=== PATIENT | male | born 1955 | race Caucasian/White ===

== ENCOUNTER 2020-04-28 13:26 | Outpatient (REF) | payer OTHER, SELFPAY ==
[2020-04-28 17:12] LABS: Alanine Aminotransferase 32 U/L (0-40); Anion Gap 15 (12-20); Aspartate Amino Transferase 34 U/L (5-37); Blood Urea Nitrogen 26 mg/dL (9-16); Calcium 8.6 mg/dL (8.4-10.2); Carbon Dioxide 29 mmol/L (22-29); Chloride 105 mmol/L (96-108); Cholesterol 147 mg/dL; Estimated Glomerular Filt Rate 37; Glucose Fasting 70 mg/dL (60-99); HDL Cholesterol 38 mg/dL; LDL Cholesterol Calculated 86 mg/dl; Potassium 4.2 mmol/l (3.3-5.1); Sodium 145 mmol/L (135-145); Triglycerides 119 mg/dL
== END 2020-04-28 13:27 | disposition home or self-care (01) ==
LOC: HO.HMGCLDS 13:26
PROVIDERS: PCP Internal Medicine; Visit Provider Internal Medicine
DX: E78.2 Mixed hyperlipidemia (principal); I10 Essential (primary) hypertension
CPT/HCPCS: 80048; 80061; 84450; 84460

== ENCOUNTER 2020-10-28 11:58 | Outpatient (REF) | payer OTHER, SELFPAY ==
[2020-10-28 14:45] LABS: Alanine Aminotransferase 25 U/L (0-40); Anion Gap 13 (12-20); Aspartate Amino Transferase 28 U/L (5-37); Blood Urea Nitrogen 22 mg/dL (9-16); Calcium 9.5 mg/dL (8.4-10.2); Carbon Dioxide 29 mmol/L (22-29); Chloride 108 mmol/L (96-108); Cholesterol 151 mg/dL; Estimated Glomerular Filt Rate 55; Glucose Fasting 92 mg/dL (60-99); HDL Cholesterol 36 mg/dL; LDL Cholesterol Calculated 92 mg/dl; Potassium 3.9 mmol/L (3.3-5.1); Sodium 146 mmol/L (135-145); Triglycerides 119 mg/dL
== END 2020-10-28 11:59 | disposition home or self-care (01) ==
LOC: HO.HMGCLDS 11:58
PROVIDERS: PCP Internal Medicine; Visit Provider Internal Medicine
DX: E78.5 Hyperlipidemia, unspecified (principal); I10 Essential (primary) hypertension
CPT/HCPCS: 36415; 80048; 80061; 84450; 84460

== ENCOUNTER 2021-05-05 10:10 | Outpatient (REF) | payer OTHER, SELFPAY ==
[2021-05-05 12:00] LABS: Alanine Aminotransferase 45 U/L (0-40); Anion Gap 14 (12-20); Aspartate Amino Transferase 32 U/L (5-37); Blood Urea Nitrogen 31 mg/dL (9-16); Calcium 9.3 mg/dL (8.4-10.2); Carbon Dioxide 28 mmol/L (22-29); Chloride 104 mmol/L (96-108); Cholesterol 168 mg/dL; Estimated Glomerular Filt Rate 43; Glucose Fasting 97 mg/dL (60-99); HDL Cholesterol 39 mg/dL; LDL Cholesterol Calculated 100 mg/dl; Potassium 3.8 mmol/L (3.3-5.1); Sodium 142 mmol/L (135-145); Triglycerides 147 mg/dL
[2021-05-05 12:04] LABS: Vitamin D 25-OH Total 34.9 ng/mL (>30)
== END 2021-05-05 10:11 | disposition home or self-care (01) ==
LOC: HO.HMGCLDS 10:10
PROVIDERS: PCP Internal Medicine; Visit Provider Internal Medicine
DX: E55.9 Vitamin D deficiency, unspecified (principal); E66.9 Obesity, unspecified; E78.5 Hyperlipidemia, unspecified; I10 Essential (primary) hypertension
CPT/HCPCS: 36415; 80048; 80061; 82306; 84450; 84460

== ENCOUNTER 2021-11-04 12:16 | Outpatient (REF) | payer OTHER, SELFPAY ==
[2021-11-04 13:47] LABS: Uric Acid 6.8 mg/dL (3.4-7.0)
[2021-11-04 13:48] LABS: Alanine Aminotransferase 32 U/L (0-40); Albumin Level 3.9 g/dL (3.5-5.0); Alkaline Phosphatase 40 U/L (39-117); Anion Gap 11 (12-20); Aspartate Amino Transferase 28 U/L (5-37); Bilirubin Total 0.8 mg/dL (0.0-1.0); Blood Urea Nitrogen 27 mg/dL (9-16); Calcium 9.7 mg/dL (8.4-10.2); Carbon Dioxide 29 mmol/L (22-29); Chloride 108 mmol/L (96-108); Cholesterol 151 mg/dL; Estimated Glomerular Filt Rate 40; Glucose Fasting 97 mg/dL (60-99); HDL Cholesterol 36 mg/dL; LDL Cholesterol Calculated 88 mg/dl; Potassium 4.1 mmol/L (3.3-5.1); Sodium 144 mmol/L (135-145); Total Protein 6.8 g/dL (6.5-8.0); Triglycerides 136 mg/dL
[2021-11-04 14:04] LABS: Vitamin D 25-OH Total 22.6 ng/mL (>30)
== END 2021-11-04 12:17 | disposition home or self-care (01) ==
LOC: HO.HMGCLDS 12:16
PROVIDERS: Visit Provider Internal Medicine
DX: E66.9 Obesity, unspecified (principal); E78.5 Hyperlipidemia, unspecified; I10 Essential (primary) hypertension; M10.9 Gout, unspecified; Z86.39 Personal history of other endocrine, nutritional and metabolic disease
CPT/HCPCS: 36415; 80053; 80061; 82306; 84550

== ENCOUNTER 2022-03-27 12:58 | Outpatient (REF) | payer OTHER, MEDICARE, SELFPAY ==
[2022-03-27 15:16] LABS: Creatinine Urine 192.37 mg/dL; Protein/Creatinine Ratio, Ur 0.07 (<0.2); Total Protein Urine Random 14 mg/dL (<12)
== END 2022-03-27 12:59 | disposition home or self-care (01) ==
LOC: HO.HMGCLDS 12:58
PROVIDERS: PCP Internal Medicine; Visit Provider Internal Medicine Nephrology
DX: I10 Essential (primary) hypertension (principal); E78.5 Hyperlipidemia, unspecified
CPT/HCPCS: 84156

== ENCOUNTER 2022-07-16 09:53 | Outpatient (REF) | payer OTHER, MEDICARE, SELFPAY ==
[2022-07-16 13:28] LABS: Alanine Aminotransferase 44 U/L (0-40); Anion Gap 13 (12-20); Aspartate Amino Transferase 35 U/L (5-37); Blood Urea Nitrogen 20 mg/dL (9-16); Calcium 9.4 mg/dL (8.4-10.2); Carbon Dioxide 28 mmol/L (22-29); Chloride 107 mmol/L (96-108); Cholesterol 163 mg/dL; Estimated Glomerular Filt Rate 51; Glucose Fasting 97 mg/dL (60-99); HDL Cholesterol 37 mg/dL; LDL Cholesterol Calculated 96 mg/dl; Potassium 3.9 mmol/L (3.3-5.1); Sodium 144 mmol/L (135-145); Triglycerides 151 mg/dL; Uric Acid 6.1 mg/dL (3.4-7.0)
[2022-07-16 13:29] LABS: Vitamin D 25-OH Total 20.8 ng/mL (>30)
== END 2022-07-16 09:54 | disposition home or self-care (01) ==
LOC: HO.HMGCLDS 09:53
PROVIDERS: PCP Internal Medicine; Visit Provider Internal Medicine
DX: E55.9 Vitamin D deficiency, unspecified (principal); I10 Essential (primary) hypertension; E78.5 Hyperlipidemia, unspecified; R79.89 Other specified abnormal findings of blood chemistry
CPT/HCPCS: 36415; 80048; 80061; 82306; 84450; 84460; 84550

== ENCOUNTER 2023-02-01 10:43 | Outpatient (REF) | payer OTHER, SELFPAY ==
[2023-02-01 14:46] LABS: Alanine Aminotransferase 51 U/L (0-40); Anion Gap 11 (12-20); Aspartate Amino Transferase 35 U/L (5-37); Blood Urea Nitrogen 13 mg/dL (9-16); Calcium 9.9 mg/dL (8.4-10.2); Carbon Dioxide 29 mmol/L (22-29); Chloride 108 mmol/L (96-108); Cholesterol 132 mg/dL; Estimated Glomerular Filt Rate 55; Glucose Fasting 85 mg/dL (60-99); HDL Cholesterol 31 mg/dL; LDL Cholesterol Calculated 77 mg/dl; Potassium 3.9 mmol/L (3.3-5.1); Sodium 144 mmol/L (135-145); Triglycerides 123 mg/dL
[2023-02-01 15:01] LABS: Vitamin D 25-OH Total 28.9 ng/mL (>30)
== END 2023-02-01 10:44 | disposition home or self-care (01) ==
LOC: HO.HMGCLDS 10:43
PROVIDERS: PCP Internal Medicine; Visit Provider Internal Medicine
DX: E55.9 Vitamin D deficiency, unspecified (principal); E78.5 Hyperlipidemia, unspecified; I10 Essential (primary) hypertension; E66.9 Obesity, unspecified
CPT/HCPCS: 36415; 80048; 80061; 82306; 84450; 84460

== ENCOUNTER 2023-02-04 13:23 | Outpatient (AMB) | payer OTHER, SELFPAY ==
[2023-02-04 13:25] VITALS: BP 132/70; PULSE 62; O2SAT 98; BMI 35.4
--- NOTE | 2023-02-04 13:25 | MHC.PC.OV ---
Vital Signs 02/04/23 13:25 Height 5 ft 10 in Weight 247 lb BMI 35.4 BP 132/70 Blood Pressure Location Lt brachial Position Sitting Pulse 62 Pulse Source Pulse Oximeter Pulse Oximetry (%) 98 Intake Visit Reasons: ffup lipids , htn , vit D def Intake Note: pt is here for f/u lipids, htn, vit d Linux System Administrator Required: No Allergies No Known Allergies Allergy (Verified 02/04/23 13:36) Medication List - Last Reconciled 02/04/23 by Stephanie Pedersen MD allopurinol 100 mg PO DAILY amlodipine 2.5 mg PO DAILY ascorbate calcium (vitamin C) 500 mg PO DAILY atorvastatin 20 mg PO DAILY atovaquone-proguanil 250-100 mg (Malarone) take 1 tab once daily x1 day before exposure, during time in area, and x7 days after leaving area PO B-complex with vitamin C 1 cap PO DAILY cholecalciferol (vitamin D3) 50 mcg PO DAILY cholecalciferol (vitamin D3) 1,250 mcg PO QWEEK 90 days fenofibrate micronized 134 mg PO DAILY hydrochlorothiazide 25 mg PO DAILY lisinopril 30 mg PO DAILY omega-3 fatty acids (Fish Oil Concentrate) 1,000 mg PO DAILY turmeric mg PO vitamin A 2,400 mcg PO DAILY Tobacco use date assessed: 08/06/22 Fall risk assessment: No Falls in past year Last assessed Fall Risk: 02/04/23 Dental Screening Dental Screen Date: 02/04/23 Did you have a dental visit in the last 12 months?: Yes Did you have a dental problem in the last 6 months where you did not have access to dental care?: No Was dental information given to patient?: Patient has dentist HPI ffup lipids , htn , vit D def HPI Details 67-year-old male with hypertension currently stable and controlled on amlodipine 2.5 mg daily and lisinopril 30 mg daily with hydrochlorothiazide 25 mg daily. Pressure has been stable and controlled. He also has dyslipidemia with latest fasting labs showing normal lipids except for low HDL cholesterol. Currently taking omega 3 fatty acid supplements atorvastatin 20 mg daily and fenofibrate micronized 135 mg daily. Denies any muscle pain, weakness, no rash. He has been compliant with his diet, and is active, just came back from a recent 2 [place] went [place] a [place] . He has history of vitamin-D deficiency, has been taking vitamin-D 3 supplements once a week high-dose, with latest vitamin-D level improving, but still not at goal of above 30. Has been feeling well with no complaints at present time [facility] Medical History COVID-19 virus infection Dyslipidemia Essential hypertension Gout High serum creatinine Hypertensive nephrosclerosis Obesity Osteoarthritis Septic arthritis Vitamin D deficiency Vitamin D deficiency Surgical History History of colonoscopy History of septic arthritis Family History Father HTN (hypertension) Stroke Mother COPD (chronic obstructive pulmonary disease) Mental health disorder Maternal Uncle Lung cancer Non-insulin dependent diabetes mellitus Substance use disorder Maternal Aunt Substance use disorder Paternal Aunt Substance use disorder Paternal Uncle Substance use disorder Social History Housing: House Alcohol intake: current Patient Tobacco Use Status: Never used Tobacco e-Cigarette/Vaping Use: Never Used service: No Current occupational status: retired Cognitive needs: No Hearing needs: No Vision needs: No Questionnaire PHQ-9 Over the last 2 weeks, how often have you been bothered by any of the following problems? Depression Screening Interpretation: Negative Source: Developed by Drs. Maxime Porter, Carin Hart, Matthew Taylor and colleagues, with an educational jay from [employer]. Thrive Questionnaire Date Thrive assessed: 08/06/22 FLORECITA-7 AMB Questionnaire FLORECITA-7 Date FLORECITA - 7 assessed: 08/06/22 Source: Developed by Drs. Maxime Porter, Carin Hart, Matthew Taylor and colleagues, with an educational jay from [employer]. Review of Systems Const Denies body aches, Denies fatigue, Denies fever(s), Denies headache(s) and Denies weakness Eyes Denies change in vision ENT Denies dizziness, Denies headache(s), Denies nasal congestion and Denies nasal discharge Card Denies chest pain, Denies lightheadedness, Denies palpitations and Denies dyspnea Resp Denies chest congestion, Denies cough, Denies dyspnea and Denies wheezing GI Denies abdominal pain, Denies change in bowel habits and Denies heartburn Denies dysuria, Denies urinary frequency and Denies urinary urgency Musc Reports stiffness (Occasional) Skin/Breast Denies dry skin, Denies lesions and Denies rash Neuro Denies dizziness, Denies headache(s) and Denies weakness Endo Denies fatigue, Denies polydipsia, Denies polyuria and Denies palpitations Aller/Immun Denies seasonal rhinorrhea and Denies wheezing Physical exam (Primary Care) Vital Signs: Last Vital Signs Pulse 62 02/04/23 13:25 BP 132/70 02/04/23 13:25 Pulse Ox 98 02/04/23 13:25 BMI result Body Mass Index 35.4 BMI Assessment/Plan discussion: High BMI High, discussed plan: lifestyle, weight reduction, dietary and physical activity Tobacco/Smoking Status: Tobacco use Status Tobacco use date assessed 08/06/22 02/04/23 13:29 Patient Tobacco Use Status Never used Tobacco 02/04/23 13:29 e-Cigarette/Vaping Use Never Used 02/04/23 13:29 Depression Screening Interpretation: Negative Thrive Assessment: Date of Thrive Assessment Date Thrive assessed 08/06/22 02/04/23 13:29 Const General: comfortable, no acute distress and alert Orientation/consciousness: patient oriented x3 HENMT Ears: external ears normal, TM's normal bilaterally and EAC's normal General nose exam: Normal external nose present and No nasal discharge present Mouth: oropharynx normal and moist mucous membranes Eyes General: appearance normal, both eyes and all related structures Conjunctivae: conjunctivae normal Sclerae: sclerae normal Pupils: Equal, round and reactive pupils present EOM: EOMs intact bilaterally Neck Neck: Yes full ROM, Yes no lymphadenopathy and Yes supple Resp Effort & Inspection: normal respiratory effort and able to speak in complete sentences Auscultation: clear to auscultation bilaterally Cardio Rate: regular rate Rhythm: regular rhythm Heart sounds: S1 normal heart sound present and S2 normal heart sound present GI Palpation (GI): Soft to palpation, nontender and no masses Auscultation: normal bowel sounds Back/Spine/Pelvis Back: No back tenderness Skin General skin exam: no rashes or lesions noted Neuro General: patient oriented x3, gait normal, tone normal, moves all extremities, Normal light touch and pain sensation and no focal motor deficits Cranial nerves: Yes CN's II-XII intact bilaterally and Yes Equal, round and reactive pupils present Cognition (Neuro): normal cognition Extrem General: Yes full ROM, Yes no joint enlargement, Yes no clubbing, cyanosis or edema and Yes no calf tenderness Results Reviewed Results Reviewed: PEC : [id number] AMANDA: 02/01/23 STATUS: COMP REQ : [id number] RECD: 02/01/[address]: Stephanie Pedersen MD COMP: 02/01/23-150 ENTERED: 02/01/23-[address]: ORDERED: Met Prof Fast, AST, ALT, Lipid Panel, Vitamin D 25-OH Test Result Flag Reference Site Sodium 144 135-145 mmol/L Potassium 3.9 3.3-5.1 mmol/L CL 108 96-108 mmol/L CO2 29 22-29 mmol/L Gap 11 L 12-20 BUN 13 9-16 mg/dL Creat 1.29 0.5-1.4 mg/dL EGFR 55 NOTE: For -[place] individuals, multiply the result by 1.210. Chronic Kidney Disease: Estimated GFR < 60 mL/min/1.73m2 Severe Kidney Disease: Estimated GFR < 15 mL/min/1.73m2 FBS 85 60-99 mg/dL CA 9.9 8.4-10.2 mg/dL AST (GOT) 35 5-37 U/L ALT (GPT) 51 H 0-40 U/L Triglyceride 123 mg/dL Desirable Triglyceride: less than 150 mg/dL Borderline High Triglyceride 150-199 mg/dL High Triglyceride: 200-499 mg/dL Very High Triglyceride: greater than or equal to 5OO mg/dL Chol 132 mg/dL Desirable Cholesterol: less than 200 mg/dL Borderline High Cholesterol: 200-239 mg/dL High Cholesterol: greater than 239 mg/dL LDL Calculated 77 mg/dl Desirable LDL: less than 100 mg/dL Near Optimal/Above Optimal LDL: 110-129 mg/dL Borderline High LDL: 130-159 mg/dL High LDL: 160-189 mg/dL Very High LDL: greater than or equal to 190 mg/dL HDL 31 mg/dL Desirable HDL: greater than 40 mg/dL Note: This HDL assay may give artificially low results in patients with liver disease. Vit D 25-OH Tot 28.9 >30 ng/mL Health Based Reference Values* < 20 ng/mL Deficient 20-30 ng/mL Insufficient > 30 ng/mL Sufficient Assessment and Plan Assessment & Plan (1) Vitamin D deficiency: Code(s): E55.9 - Vitamin D deficiency, unspecified Plan: Increase vitamin-D level supplement to 5000 units daily for the next 3 months then decrease it to 2000 units daily over the winter. Recheck levels again in 6 months (2) Essential hypertension: Code(s): I10 - Essential (primary) hypertension Plan: Blood pressure at goal of less than 130/80. Continue with lisinopril 30 mg and hydrochlorothiazide 25 mg daily. Reinforced importance of following a low sodium diet, getting regular exercise, and lowering stress levels. (3) Dyslipidemia: Code(s): E78.5 - Hyperlipidemia, unspecified Plan: Reviewed recent fasting lipid profile with patient with levels within normal limits except for low good cholesterol . Continue with atorvastatin 20 , fenofibrate, mg and [place] 3 fatty acid supplements , in addition to adherence to low-cholesterol diet and regular exercise, at least 30 minutes 3 to 4 times a week. Advised patient to make healthy food choices, eat more fruits, vegetables, whole grains, wild caught fish and low-fat dairy. Limit amount of meat and fried or fatty food products, as well as processed foods and fast foods. Follow-up scheduled with repeat fasting lipid panel in 6 months. (4) Obesity: Code(s): E66.9 - Obesity, unspecified Plan: Discussed need to increase activity and wt reduction. Recommended focusing on improving your health instead of dieting. : Eat Mediterranean diet, limit foods high in fat, sugar, and calories, eat slowly, pay attention to portion sizes, plan your meals ahead of time, start regular physical activity 150 minutes of moderate intensity exercise or 90 minutes/week of vigorous exercise and increase water intake. Orders: Orders Alanine Aminotransferase 6 Months E55.9 - Vitamin D deficiency, unspecified, E66.9 - Obesity, unspecified, E78.5 - Hyperlipidemia, unspecified, I10 - Essential (primary) hypertension Aspartate Amino Transferase 6 Months E55.9 - Vitamin D deficiency, unspecified, E66.9 - Obesity, unspecified, E78.5 - Hyperlipidemia, unspecified, I10 - Essential (primary) hypertension Basic Metabolic Panel Fasting 6 Months E55.9 - Vitamin D deficiency, unspecified, E66.9 - Obesity, unspecified, E78.5 - Hyperlipidemia, unspecified, I10 - Essential (primary) hypertension Lipid Panel 6 Months E55.9 - Vitamin D deficiency, unspecified, E66.9 - Obesity, unspecified, E78.5 - Hyperlipidemia, unspecified, I10 - Essential (primary) hypertension Vitamin D 25-OH Total 6 Months E55.9 - Vitamin D deficiency, unspecified, E66.9 - Obesity, unspecified, E78.5 - Hyperlipidemia, unspecified, I10 - Essential (primary) hypertension Coding Level of Care Code Est Pt Level 4 (89887) Diagnoses Vitamin D deficiency E55.9 Essential hypertension I10 Dyslipidemia E78.5 Obesity E66.9
== END 2023-02-04 13:56 | disposition home or self-care (01) ==
PROVIDERS: Visit Provider Internal Medicine
DX: I10 Essential (primary) hypertension (principal); E55.9 Vitamin D deficiency, unspecified; E66.9 Obesity, unspecified; Z68.35 Body mass index [BMI] 35.0-35.9, adult; E78.5 Hyperlipidemia, unspecified
CPT/HCPCS: 99214

== ENCOUNTER 2023-07-26 09:27 | Outpatient (REF) | payer OTHER, SELFPAY ==
[2023-07-26 12:42] LABS: Alanine Aminotransferase 40 U/L (0-40); Anion Gap 14 (12-20); Aspartate Amino Transferase 35 U/L (5-37); Blood Urea Nitrogen 24 mg/dL (9-16); Calcium 9.8 mg/dL (8.4-10.2); Carbon Dioxide 30 mmol/L (22-29); Chloride 102 mmol/L (96-108); Cholesterol 151 mg/dL (<200); Estimated Glomerular Filt Rate > 60; Glucose Fasting 84 mg/dL (60-99); HDL Cholesterol 38 mg/dL (>40); LDL Cholesterol Calculated 87 mg/dL (<100); Potassium 3.2 mmol/L (3.3-5.1); Sodium 143 mmol/L (135-145); Triglycerides 131 mg/dL (<150)
[2023-07-26 13:00] LABS: Vitamin D 25-OH Total 46.5 ng/mL (>30)
== END 2023-07-26 09:28 | disposition home or self-care (01) ==
LOC: HO.HMGCLDS 09:27
PROVIDERS: PCP Internal Medicine; Visit Provider Internal Medicine
DX: E55.9 Vitamin D deficiency, unspecified (principal); E66.9 Obesity, unspecified; I10 Essential (primary) hypertension; E78.5 Hyperlipidemia, unspecified
CPT/HCPCS: 36415; 80048; 80061; 82306; 84450; 84460

== ENCOUNTER 2023-07-29 11:25 | Outpatient (AMB) | payer OTHER, SELFPAY ==
[2023-07-29 11:37] VITALS: BP 132/80; PULSE 60; O2SAT 96; BMI 36.6
--- NOTE | 2023-07-29 11:37 | MHC.PC.OV ---
Vital Signs 07/29/23 11:37 Height 5 ft 10 in Weight 255 lb BMI 36.6 BP 132/80 Blood Pressure Location Lt brachial Position Sitting Pulse 60 Pulse Source Pulse Oximeter Pulse Oximetry (%) 96 Oxygen Delivery Method Room Air Intake Visit Reasons: 6m f/u Intake Note: Pt is here today for his 6 months f/u Allergies No Known Allergies Allergy (Verified 07/29/23 12:11) Medication List - Last Reconciled 07/29/23 by Stephanie Pedersen MD allopurinol 100 mg PO DAILY amlodipine 2.5 mg PO DAILY ascorbate calcium (vitamin C) 500 mg PO DAILY atorvastatin 20 mg PO DAILY B-complex with vitamin C 1 cap PO DAILY cholecalciferol (vitamin D3) 50 mcg PO DAILY fenofibrate micronized 134 mg PO DAILY hydrochlorothiazide 25 mg PO DAILY lisinopril 30 mg PO DAILY omega-3 fatty acids (Fish Oil Concentrate) 1,000 mg PO DAILY turmeric mg PO vitamin A 2,400 mcg PO DAILY Tobacco use date assessed: 07/29/23 Fall risk assessment: No Falls in past year Last assessed Fall Risk: 07/29/23 Dental Screening Dental Screen Date: 07/29/23 Did you have a dental visit in the last 12 months?: Yes Did you have a dental problem in the last 6 months where you did not have access to dental care?: Yes Was dental information given to patient?: Patient has dentist HPI 6m f/u HPI Details 68-year-old male with hyperlipidemia, hypertension, osteoarthritis and history of gout, here today for follow-up. He has been compliant with taking his medications, and tries to follow diet recommended, stays active. Had recent fasting labs done which showed normal lipids, electrolytes except for hypokalemia. Otherwise he has been feeling well with no complaints at present time. [facility] Medical History (Updated 07/29/23 @ 12:31 by Stephanie Pedersen MD) Right knee pain Hypertensive nephrosclerosis Vitamin D deficiency High serum creatinine Osteoarthritis COVID-19 virus infection Obesity Vitamin D deficiency Septic arthritis Gout Essential hypertension Dyslipidemia Surgical History History of colonoscopy History of septic arthritis Family History Father HTN (hypertension) Stroke Mother COPD (chronic obstructive pulmonary disease) Mental health disorder Maternal Uncle Lung cancer Non-insulin dependent diabetes mellitus Substance use disorder Maternal Aunt Substance use disorder Paternal Aunt Substance use disorder Paternal Uncle Substance use disorder Social History Housing: House Alcohol intake: current Patient Tobacco Use Status: Never used Tobacco e-Cigarette/Vaping Use: Never Used service: No Current occupational status: retired Cognitive needs: No Hearing needs: No Vision needs: No Questionnaire PHQ-9 Over the last 2 weeks, how often have you been bothered by any of the following problems? 1. Little interest or pleasure in doing things: not at all 2. Feeling down, depressed, or hopeless: not at all 3. Trouble falling or staying asleep, or sleeping too much: not at all 4. Feeling tired or having little energy: not at all 5. Poor appetite or overeating: not at all 6. Feeling bad about yourself - or that you are a failure or have let yourself or your family down: not at all 7. Trouble concentrating on things, such as reading the newspaper or watching television: not at all 8. Moving or speaking so slowly that other people could have noticed. Or the opposite - being so fidgety or restless that you have been moving around a lot more than usual: not at all 9. Thoughts that you would be better off or of hurting yourself in some way: not at all Total score: 0 Depression Screening Interpretation: Negative Depression Screening Done: Yes 48498 - PHQ-9 Billing: Yes Source: Developed by Drs. Maxime Porter, Carin Hart, Matthew Taylor and colleagues, with an educational jay from [employer]. Thrive Questionnaire Date Thrive assessed: 07/29/23 I am a: Patient What is your living situation today?: I have a steady place to live Within the past 12 months, did the food you bought not last and you didn't have the money to get more?: Never true Within the past 12 months, did you worry whether your food would run out before you got money to buy more?: Never true Do you have trouble paying for medicines?: No Do you have trouble getting transportation to medical appointments?: No Do you have trouble paying your heating and electricity bill?: No Do you have trouble taking care of your child, family member or friend?: No Do you have trouble with day-to-day activities such as bathing, preparing meals, shopping, managing finances, etc.?: No Are you currently unemployed and looking for a job?: No Are you interested in more education?: No THRIVE Score: 0 AUDIT C Alcohol Use Questionnaire (AUDIT-C) 1. How often do you have a drink containing alcohol?: Monthly or less 2. How many drinks containing alcohol do you have on a typical day when you are drinking?: 1 or 2 3. How often do you have six or more drinks on one occasion?: Never Total Score: 1 FLORECITA-7 AMB Questionnaire FLORECITA-7 Date FLORECITA - 7 assessed: 07/29/23 Feeling nervous, anxious, or on edge: 0 = Not at all Not being able to stop or control worryin = Not at all Worrying too much about different things: 0 = Not at all Trouble relaxin = Not at all Being so restless that it is hard to sit still: 0 = Not at all Becoming easily annoyed or irritable: 0 = Not at all Feeling afraid as if something awful might happen: 0 = Not at all Total FLORECITA-7 score (0-4 normal; 5-9 mild; 10-14 moderate; 15-21 severe): 0 Source: Developed by Drs. Maxime Porter, Carin Hart, Matthew Taylor and colleagues, with an educational jay from [employer]. FLORECITA-7 Assessment Billing FLORECITA-7 Assessment Tool: FLORECITA-7 Assessment 52468 Review of Systems Const Denies body aches, Denies fatigue, Denies fever(s), Denies headache(s) and Denies weakness Eyes Denies change in vision ENT Denies dizziness, Denies headache(s), Denies nasal congestion and Denies nasal discharge Card Denies chest pain, Denies lightheadedness, Denies palpitations and Denies dyspnea Resp Denies chest congestion, Denies cough, Denies dyspnea and Denies wheezing GI Denies abdominal pain, Denies change in bowel habits and Denies heartburn Denies dysuria, Denies urinary frequency and Denies urinary urgency Musc Reports stiffness (Occasional) Skin/Breast Denies dry skin, Denies lesions and Denies rash Neuro Denies dizziness, Denies headache(s) and Denies weakness Psych Reports no additional complaints Endo Denies fatigue, Denies polydipsia, Denies polyuria and Denies palpitations Aller/Immun Denies seasonal rhinorrhea and Denies wheezing Physical exam (Primary Care) Vital Signs: Last Vital Signs Pulse 60 07/29/23 11:37 BP 132/80 07/29/23 11:37 Pulse Ox 96 07/29/23 11:37 Oxygen Delivery Method Room Air 07/29/23 11:37 BMI result Body Mass Index 36.6 BMI Assessment/Plan discussion: High BMI High, discussed plan: lifestyle, weight reduction, dietary and physical activity Tobacco/Smoking Status: Tobacco use Status Tobacco use date assessed 07/29/23 07/29/23 11:40 Patient Tobacco Use Status Never used Tobacco 07/29/23 11:40 e-Cigarette/Vaping Use Never Used 07/29/23 11:40 PHQ-9: PHQ-9 Score PHQ-9: Total score 0 07/29/23 12:15 Depression Screening Interpretation: Negative Thrive Assessment: Date of Thrive Assessment Date Thrive assessed 07/29/23 07/29/23 11:57 Const General: comfortable, no acute distress and alert Orientation/consciousness: patient oriented x3 HENMT Ears: external ears normal, TM's normal bilaterally and EAC's normal General nose exam: Normal external nose present and No nasal discharge present Mouth: oropharynx normal and moist mucous membranes Eyes General: appearance normal, both eyes and all related structures Conjunctivae: conjunctivae normal Sclerae: sclerae normal Pupils: Equal, round and reactive pupils present EOM: EOMs intact bilaterally Neck Neck: Yes full ROM, Yes no lymphadenopathy and Yes supple Resp Effort & Inspection: normal respiratory effort and able to speak in complete sentences Auscultation: clear to auscultation bilaterally Cardio Rate: regular rate Rhythm: regular rhythm Heart sounds: S1 normal heart sound present and S2 normal heart sound present GI Palpation (GI): Soft to palpation, nontender and no masses Auscultation: normal bowel sounds Back/Spine/Pelvis Back: No back tenderness Skin General skin exam: no rashes or lesions noted Neuro General: patient oriented x3, gait normal, tone normal, moves all extremities, Normal light touch and pain sensation and no focal motor deficits Cranial nerves: Yes CN's II-XII intact bilaterally and Yes Equal, round and reactive pupils present Cognition (Neuro): normal cognition Extrem General: Yes full ROM, Yes no joint enlargement, Yes no clubbing, cyanosis or edema and Yes no calf tenderness Results Reviewed Results Reviewed: COMP: 07/26/23-1300 ENTERED: 07/26/23 GILA ANN: ORDERED: Met Prof Fast, AST, ALT, Lipid Panel, Vitamin D 25-OH Test Result Flag Reference Sodium 143 135-145 mmol/L Potassium 3.2 L 3.3-5.1 mmol/L CL 102 96-108 mmol/L CO2 30 H 22-29 mmol/L Gap 14 12-20 BUN 24 H 9-16 mg/dL Creat 1.20 0.5-1.4 mg/dL EGFR > 60 NOTE: For -[place] individuals, multiply the result by 1.210. Chronic Kidney Disease: Estimated GFR < 60 mL/min/1.73m2 Severe Kidney Disease: Estimated GFR < 15 mL/min/1.73m2 FBS 84 60-99 mg/dL CA 9.8 8.4-10.2 mg/dL AST (GOT) 35 5-37 U/L ALT (GPT) 40 0-40 U/L Triglyceride 131 <150 mg/dL Desirable Triglyceride: less than 150 mg/dL Borderline High Triglyceride 150-199 mg/dL High Triglyceride: 200-499 mg/dL Very High Triglyceride: greater than or equal to 5OO mg/dL Cholesterol 151 <200 mg/dL Desirable Cholesterol: less than 200 mg/dL Borderline High Cholesterol: 200-239 mg/dL High Cholesterol: greater than 239 mg/dL LDL Calculated 87 <100 mg/dL Desirable LDL: less than 100 mg/dL Near Optimal/Above Optimal LDL: 110-129 mg/dL Borderline High LDL: 130-159 mg/dL High LDL: 160-189 mg/dL Very High LDL: greater than or equal to 190 mg/dL HDL 38 L >40 mg/dL Desirable HDL: greater than 40 mg/dL Note: This HDL assay may give artificially low results in patients with liver disease. Vit D 25-OH Tot 46.5 >30 ng/mL Health Based Reference Values* < 20 ng/mL Deficient 20-30 ng/mL Insufficient > 30 ng/mL Sufficient Assessment and Plan Assessment & Plan (1) Essential hypertension: Code(s): I10 - Essential (primary) hypertension Plan: Blood pressure at goal of less than 130/80. Continue with current medication. Reinforced importance of following a low sodium diet, getting regular exercise, and lowering stress levels. (2) Dyslipidemia: Code(s): E78.5 - Hyperlipidemia, unspecified Plan: Fasting lipid panel obtained recently showed results within normal limits. Continue taking fenofibrate and Jennings 3 fatty acid supplements as well as atorvastatin 20 mg daily (3) Osteoarthritis: Code(s): M19.90 - Unspecified osteoarthritis, unspecified site Qualifiers: Laterality: right Osteoarthritis location: knee Osteoarthritis type: post-traumatic Qualified Code(s): M17.31 - Unilateral post-traumatic osteoarthritis, right knee Plan: Try taking turmeric supplements to reduce inflammation. May take Tylenol every 8 hours as needed for joint pain. Continue staying active (4) Hypokalemia: Code(s): E87.6 - Hypokalemia Plan: Likely due to taking hydrochlorothiazide. Potassium replacement sent with potassium chloride ER 10 mEq per capsule to take once a day. Will repeat another potassium level in 1 week (5) Right knee pain: Code(s): M25.561 - Pain in right knee Qualifiers: Chronicity: chronic Qualified Code(s): M25.561 - Pain in right knee; G89.29 - Other chronic pain Plan: No improvement with [id number] medications. Referred to orthopedics for further evaluation management Orders: Orders Lipid Panel 10/23/23 I12.9 - Hypertensive chronic kidney disease with stage 1 through stage 4 chronic kidney disease, or unspecified chronic kidney disease, E66.9 - Obesity, unspecified, M10.9 - Gout, unspecified, I10 - Essential (primary) hypertension, E78.5 - Hyperlipidemia, unspecified Uric Acid 10/23/23 I12.9 - Hypertensive chronic kidney disease with stage 1 through stage 4 chronic kidney disease, or unspecified chronic kidney disease, E66.9 - Obesity, unspecified, M10.9 - Gout, unspecified, I10 - Essential (primary) hypertension, E78.5 - Hyperlipidemia, unspecified Alanine Aminotransferase 10/23/23 I12.9 - Hypertensive chronic kidney disease with stage 1 through stage 4 chronic kidney disease, or unspecified chronic kidney disease, E66.9 - Obesity, unspecified, M10.9 - Gout, unspecified, I10 - Essential (primary) hypertension, E78.5 - Hyperlipidemia, unspecified PSA,Total (Free>4and<10) 10/23/23 I12.9 - Hypertensive chronic kidney disease with stage 1 through stage 4 chronic kidney disease, or unspecified chronic kidney disease, E66.9 - Obesity, unspecified, M10.9 - Gout, unspecified, I10 - Essential (primary) hypertension, E78.5 - Hyperlipidemia, unspecified Potassium 1 Week E87.6 - Hypokalemia Basic Metabolic Panel Fasting 10/23/23 I12.9 - Hypertensive chronic kidney disease with stage 1 through stage 4 chronic kidney disease, or unspecified chronic kidney disease, E66.9 - Obesity, unspecified, M10.9 - Gout, unspecified, I10 - Essential (primary) hypertension, E78.5 - Hyperlipidemia, unspecified Vitamin D 25-OH Total 10/23/23 I12.9 - Hypertensive chronic kidney disease with stage 1 through stage 4 chronic kidney disease, or unspecified chronic kidney disease, E66.9 - Obesity, unspecified, M10.9 - Gout, unspecified, I10 - Essential (primary) hypertension, E78.5 - Hyperlipidemia, unspecified Aspartate Amino Transferase 10/23/23 I12.9 - Hypertensive chronic kidney disease with stage 1 through stage 4 chronic kidney disease, or unspecified chronic kidney disease, E66.9 - Obesity, unspecified, M10.9 - Gout, unspecified, I10 - Essential (primary) hypertension, E78.5 - Hyperlipidemia, unspecified Referrals Orthopedics Referral M25.561 - Pain in right knee, M19.90 - Unspecified osteoarthritis, unspecified site Medications: New potassium chloride ER 10 mEq PO DAILY 10 caps 0RF E87.6 - Hypokalemia Coding Level of Care Code Est Pt Level 4 (06629) Diagnoses Essential hypertension I10 Dyslipidemia E78.5 Post-traumatic osteoarthritis of right knee M17.31 Laterality: right Osteoarthritis location: knee Osteoarthritis type: post-traumatic Hypokalemia E87.6 Chronic pain of right knee M25.561; G89.29 Chronicity: chronic Additional Codes FLORECITA-7 Assessment Billing - FLORECITA-7 Assessment Tool: FLORECITA-7 Assessment 77673 ([id number])
== END 2023-07-29 12:35 | disposition home or self-care (01) ==
PROVIDERS: PCP Internal Medicine; Visit Provider Internal Medicine
DX: I10 Essential (primary) hypertension (principal); E78.5 Hyperlipidemia, unspecified; M17.31 Unilateral post-traumatic osteoarthritis, right knee; E87.6 Hypokalemia; M25.561 Pain in right knee; G89.29 Other chronic pain
CPT/HCPCS: 99214

== ENCOUNTER 2023-08-12 11:36 | Outpatient (REF) | payer OTHER, SELFPAY ==
[2023-08-12 13:51] LABS: Potassium 3.8 mmol/L (3.3-5.1)
== END 2023-08-12 11:37 | disposition home or self-care (01) ==
LOC: HO.HMGCLDS 11:36
PROVIDERS: PCP Internal Medicine; Visit Provider Internal Medicine
DX: E87.6 Hypokalemia (principal)
CPT/HCPCS: 36415; 84132

== ENCOUNTER 2023-08-20 07:42 | Outpatient (REF) | payer OTHER, SELFPAY ==
--- NOTE | ~2023-08-20 | XR_ITS ---
EXAMINATION: XR KNEE, RIGHT CLINICAL INFORMATION: Pain. COMPARISON: None available. TECHNIQUE: Frontal, lateral and axial views of the right knee are submitted. FINDINGS: Bony mineralization is normal. A transverse fracture line is now appreciated on the upper patella, more pronounced than was noted previously. There is marked asymmetric narrowing of the medial joint space compartment, and the lateral joint space compartment is well-maintained. There is increased lateral subluxation of the tibia relative to the femur. There is marked osteoarthritic change of the patellofemoral compartment. There is a moderate right knee joint effusion. No foreign body is seen. There are atherosclerotic calcifications. XR/XR knee RT 3V IMPRESSION: 1. A nondisplaced transverse fractures seen of the superior margin of the patella, possibly representing a stable osteophyte. This appearance is more pronounced than was noted on the comparison examination of 2019. Please correlate clinically. 2. There is tricompartment osteoarthritic change of the right knee, most pronounced of the medial and patellofemoral joint space compartments, where degenerative change is marked. 3. There is a moderate joint effusion.
== END 2023-08-20 07:43 | disposition home or self-care (01) ==
LOC: HO.HOSX 07:42
PROVIDERS: PCP Internal Medicine; Visit Provider Orthopaedic Surgery
DX: M17.11 Unilateral primary osteoarthritis, right knee (principal)
CPT/HCPCS: 73562; 99202

== ENCOUNTER 2023-08-20 07:42 | Outpatient (AMB) | payer OTHER, SELFPAY ==
[2023-08-20 08:04] VITALS: BMI 36.6
--- NOTE | 2023-08-20 08:04 | MHC.OFFVIS ---
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 Patient reports his pain has been going on for about 4 years and is a 1 on the 1-10 pain scale. He reports that he slipped down a latter in 2019. The pain is worse when walking long distances. He denies any injections and surgery. He has tried Tylenol which gives him minimal relief. The patient states that he is going on vacation to [place] at the end of next month. Allergies No Known Allergies Allergy (Verified 08/20/23 08:08) Medication List - Last Reconciled 08/20/23 by Shabbir Leblanc MD allopurinol 100 mg PO DAILY amlodipine 2.5 mg PO DAILY ascorbate calcium (vitamin C) 500 mg PO DAILY atorvastatin 20 mg PO DAILY B-complex with vitamin C 1 cap PO DAILY cholecalciferol (vitamin D3) 50 mcg PO DAILY fenofibrate micronized 134 mg PO DAILY hydrochlorothiazide 25 mg PO DAILY lisinopril 30 mg PO DAILY omega-3 fatty acids (Fish Oil Concentrate) 1,000 mg PO DAILY potassium chloride ER 10 mEq PO DAILY turmeric mg PO vitamin A 2,400 mcg PO DAILY [facility] Medical History Right knee pain Hypertensive nephrosclerosis Vitamin D deficiency High serum creatinine Osteoarthritis COVID-19 virus infection Obesity Vitamin D deficiency Septic arthritis Gout Essential hypertension Dyslipidemia Surgical History History of colonoscopy History of septic arthritis Family History Father HTN (hypertension) Stroke Mother COPD (chronic obstructive pulmonary disease) Mental health disorder Maternal Uncle Lung cancer Non-insulin dependent diabetes mellitus Substance use disorder Maternal Aunt Substance use disorder Paternal Aunt Substance use disorder Paternal Uncle Substance use disorder Social History Housing: House Alcohol intake: current Patient Tobacco Use Status: Never used Tobacco e-Cigarette/Vaping Use: Never Used service: No Current occupational status: retired Cognitive needs: No Hearing needs: No Vision needs: No Physical Exam Vital Signs: BMI result Body Mass Index 36.6 Const Other: Well-nourished well-developed very friendly male awake alert and oriented x3 in no acute distress Extrem Other: Bilateral lower extremity examination shows good capillary refill, no skin lesions noted, normal sensation light touch Right knee examination shows a minimal effusion, palpable crepitus range of motion, pain with range of motion, range of motion from -3 degrees to 110 degrees, no instability Results Reviewed Results Reviewed: X-rays of the patient's right knee taken today show severe joint space narrowing, subchondral sclerosis, osteophyte formation, no acute bony abnormalities Assessment & Plan Assessment & Plan (1) Arthritis of right knee: Code(s): M17.11 - Unilateral primary osteoarthritis, right knee Plan Mr. Richardson presents with right knee pain due to degenerative joint disease. I had a lengthy discussion with the patient regarding the treatment options. He wishes to hold off on surgery for as long as possible. I agree with this plan. I did give him a prescription for meloxicam to help with his pain. I will see him back in a few weeks for a right knee cortisone injection before he goes to [place]. Feel free to call me at any time should questions regarding his orthopedic management arise. I spent 19 minutes in reviewing the patient's records and imaging studies, seeing the patient and documenting in the medical record. Orders: Orders XR knee RT 3V 08/20/23 M25.561 - Pain in right knee Medications: New meloxicam 15 mg PO DAILY PRN 30 tabs 2RF pain Coding Level of Care Code New Pt Level 2 (54803) Diagnoses Arthritis of right knee M17.11
== END 2023-08-20 08:23 | disposition home or self-care (01) ==
PROVIDERS: PCP Internal Medicine; Visit Provider Orthopaedic Surgery
DX: M17.11 Unilateral primary osteoarthritis, right knee (principal)
CPT/HCPCS: 99202

== ENCOUNTER 2023-09-10 07:29 | Outpatient (AMB) | payer OTHER, SELFPAY ==
--- NOTE | 2023-09-10 07:54 | MHC.OFFVIS ---
Intake Intake Visit Reasons: OV-right knee injection Intake Note: Mr. Richardson presents with complaints of progressively worsening right knee pain. He describes his pain as sharp in nature. His pain has gotten worse over the last year in spite of continued non operative treatments. He wishes to hold off on surgery for as long as possible. He has tried Tylenol and meloxicam which gave him mild relief. He has also done physical therapy exercises which seemed to aggravate his pain. Allergies No Known Allergies Allergy (Verified 08/20/23 08:08) Medication List - Last Reconciled 09/10/23 by Shabbir Leblanc MD allopurinol 100 mg PO DAILY amlodipine 2.5 mg PO DAILY ascorbate calcium (vitamin C) 500 mg PO DAILY atorvastatin 20 mg PO DAILY B-complex with vitamin C 1 cap PO DAILY cholecalciferol (vitamin D3) 50 mcg PO DAILY fenofibrate micronized 134 mg PO DAILY hydrochlorothiazide 25 mg PO DAILY lisinopril 30 mg PO DAILY meloxicam 15 mg PO DAILY PRN omega-3 fatty acids (Fish Oil Concentrate) 1,000 mg PO DAILY potassium chloride ER 10 mEq PO DAILY turmeric mg PO vitamin A 2,400 mcg PO DAILY PFS Medical History Right knee pain Hypertensive nephrosclerosis Vitamin D deficiency High serum creatinine Osteoarthritis COVID-19 virus infection Obesity Vitamin D deficiency Septic arthritis Gout Essential hypertension Dyslipidemia Surgical History History of colonoscopy History of septic arthritis Family History Father HTN (hypertension) Stroke Mother COPD (chronic obstructive pulmonary disease) Mental health disorder Maternal Uncle Lung cancer Non-insulin dependent diabetes mellitus Substance use disorder Maternal Aunt Substance use disorder Paternal Aunt Substance use disorder Paternal Uncle Substance use disorder Social History Housing: House Alcohol intake: current Patient Tobacco Use Status: Never used Tobacco e-Cigarette/Vaping Use: Never Used service: No Current occupational status: retired Cognitive needs: No Hearing needs: No Vision needs: No Physical Exam Const Other: Well-nourished well-developed very friendly male awake alert and oriented x3 in no acute distress Extrem Other: Bilateral lower extremity examination shows good capillary refill, no skin lesions noted, normal sensation light touch Right knee examination shows a mild effusion, palpable crepitus with range of motion, pain with range of motion, no instability Office Procedures Joint Injection/Drain Joint Injection/Drain Primary Site: right knee Prep: site was prepped using aseptic technique Injected: 40 mg of, DepoMedrol and 1% plain lidocaine Procedure: The patient tolerated the procedure well Coding - Large joint Procedure code (CPT) selection complete Results Reviewed Results Reviewed: X-rays of the patient's right knee show joint space narrowing, subchondral sclerosis, no acute bony abnormalities Assessment & Plan Assessment & Plan (1) Arthritis of right knee: Code(s): M17.11 - Unilateral primary osteoarthritis, right knee Plan Mr. Richardson presents with right knee pain due to degenerative joint disease. I had a lengthy discussion with the patient regarding the treatment options. He wishes to hold off on surgery for as long as possible. I agree with this plan. The risks and benefits of a right knee cortisone injection were discussed at length with the patient. The patient wished to proceed. Prior to the injection 2 cc of clear fluid were aspirated from his right knee. He tolerated the injection well. He will continue with his home exercise program. Will follow up with me on an as-needed basis should his symptoms not plateau at an unacceptable level over the next few months. Feel free to call me at any time should questions regarding his orthopedic management arise. I spent 22 minutes in reviewing the patient's records and imaging studies, seeing the patient and documenting in the medical record. Orders: Orders AMB Joint Injection/Aspiration Today M17.11 - Unilateral primary osteoarthritis, right knee Coding Level of Care Code Est Pt Level 2 (49494) Diagnoses Arthritis of right knee M17.11 CPT Codes Coding - Large joint: 42038 - Large joint ([id number])
== END 2023-09-10 07:56 | disposition home or self-care (01) ==
PROVIDERS: PCP Internal Medicine; Visit Provider Orthopaedic Surgery
DX: M17.11 Unilateral primary osteoarthritis, right knee (principal)
CPT/HCPCS: 20610; 99213

== ENCOUNTER → 2023-09-10 07:29 | Outpatient (BNVA) | payer OTHER, SELFPAY | PROVIDERS: PCP Internal Medicine; Visit Provider Orthopaedic Surgery | DX: M17.11 Unilateral primary osteoarthritis, right knee (principal) | CPT/HCPCS: 20610; J1020 ==

== ENCOUNTER 2023-10-28 09:50 | Outpatient (REF) | payer OTHER, SELFPAY ==
[2023-10-28 14:10] LABS: PSA,Total (Free>4and<10) 0.47 ng/mL (0.00-4.00)
[2023-10-28 14:24] LABS: Alanine Aminotransferase 40 U/L (0-40); Anion Gap 14 (12-20); Aspartate Amino Transferase 32 U/L (5-37); Blood Urea Nitrogen 27 mg/dL (9-16); Calcium 9.9 mg/dL (8.4-10.2); Carbon Dioxide 26 mmol/L (22-29); Chloride 108 mmol/L (96-108); Cholesterol 151 mg/dL (<200); Estimated Glomerular Filt Rate 51; Glucose Fasting 102 mg/dL (60-99); HDL Cholesterol 35 mg/dL (>40); LDL Cholesterol Calculated 90 mg/dL (<100); Potassium 3.8 mmol/L (3.3-5.1); Sodium 144 mmol/L (135-145); Triglycerides 133 mg/dL (<150); Uric Acid 5.8 mg/dL (3.4-7.0)
== END 2023-10-28 09:51 | disposition home or self-care (01) ==
LOC: HO.HMGCLDS 09:50
PROVIDERS: PCP Internal Medicine; Visit Provider Internal Medicine
DX: Z12.5 Encounter for screening for malignant neoplasm of prostate (principal); I12.9 Hypertensive chronic kidney disease with stage 1 through stage 4 chronic kidney disease, or unspecified chronic kidney disease; N18.9 Chronic kidney disease, unspecified; E66.9 Obesity, unspecified; M10.9 Gout, unspecified; E78.5 Hyperlipidemia, unspecified
CPT/HCPCS: 36415; 80048; 80061; 82306; 84153; 84450; 84460; 84550

== ENCOUNTER 2023-10-31 09:57 | Outpatient (AMB) | payer OTHER, SELFPAY ==
--- NOTE | 2023-10-31 10:42 | MHC.PC.OV ---
Vital Signs 10/31/23 10:43 Height 5 ft 10 in Weight 256 lb BMI 36.7 BP 132/76 Blood Pressure Location Rt brachial Position Sitting Pulse 59 Pulse Oximetry (%) 97 Oxygen Delivery Method Room Air Intake Visit Reasons: PE Intake Note: Pt is here today for his annual physical Last colonoscopy 10/10/16 Last flu 08/01/22 Allergies No Known Allergies Allergy (Verified 09/14/24 00:28) Medication List - Last Reconciled 10/31/23 by Stephanie Pedersen MD allopurinol 100 mg PO DAILY amlodipine 2.5 mg PO DAILY ascorbate calcium (vitamin C) 500 mg PO DAILY atorvastatin 20 mg PO DAILY B-complex with vitamin C 1 cap PO DAILY cholecalciferol (vitamin D3) 50 mcg PO DAILY fenofibrate micronized 134 mg PO DAILY hydrochlorothiazide 25 mg PO DAILY lisinopril 30 mg PO DAILY meloxicam 15 mg PO DAILY PRN omega-3 fatty acids (Fish Oil Concentrate) 1,000 mg PO DAILY potassium chloride ER 10 mEq PO DAILY turmeric mg PO vitamin A 2,400 mcg PO DAILY Tobacco use date assessed: 10/31/23 Fall risk assessment: No Falls in past year Last assessed Fall Risk: 10/31/23 Dental Screening Dental Screen Date: 10/31/23 Did you have a dental visit in the last 12 months?: Yes Did you have a dental problem in the last 6 months where you did not have access to dental care?: No Was dental information given to patient?: Patient has dentist HPI PE HPI Details 68-year-old male here today for his physical exam. He is currently up-to-date with his screening colonoscopy, done by Dr. Singleton in 2016, not due again until 2026. He has hypertension stable and controlled on amlodipine , hydrochlorothiazide and lisinopril . Has hyperlipidemia currently stable controlled on atorvastatin and fenofibrate as well as Hardin 3 fatty acid supplements. He has osteoarthritis currently treated with meloxicam as needed Has history of gout, currently asymptomatic with latest uric acid level within normal limits. He is up-to-date with all his vaccinations [facility] Medical History Right knee pain Hypertensive nephrosclerosis Vitamin D deficiency High serum creatinine Osteoarthritis COVID-19 virus infection Obesity Vitamin D deficiency Septic arthritis Gout Essential hypertension Dyslipidemia Surgical History History of colonoscopy History of septic arthritis Family History Father HTN (hypertension) Stroke Mother COPD (chronic obstructive pulmonary disease) Mental health disorder Maternal Uncle Lung cancer Non-insulin dependent diabetes mellitus Substance use disorder Maternal Aunt Substance use disorder Paternal Aunt Substance use disorder Paternal Uncle Substance use disorder Social History Housing: House Alcohol intake: current Patient Tobacco Use Status: Never used Tobacco e-Cigarette/Vaping Use: Never Used service: No Current occupational status: retired Cognitive needs: No Hearing needs: No Vision needs: No Questionnaire PHQ-9 Over the last 2 weeks, how often have you been bothered by any of the following problems? 1. Little interest or pleasure in doing things: not at all 2. Feeling down, depressed, or hopeless: not at all 3. Trouble falling or staying asleep, or sleeping too much: not at all 4. Feeling tired or having little energy: several days 5. Poor appetite or overeating: not at all 6. Feeling bad about yourself - or that you are a failure or have let yourself or your family down: not at all 7. Trouble concentrating on things, such as reading the newspaper or watching television: not at all 8. Moving or speaking so slowly that other people could have noticed. Or the opposite - being so fidgety or restless that you have been moving around a lot more than usual: not at all 9. Thoughts that you would be better off or of hurting yourself in some way: not at all Total score: 1 Depression Screening Interpretation: Negative Depression Screening Done: Yes 42601 - PHQ-9 Billing: Yes Source: Developed by Drs. Maxime Porter, Carin Hart, Matthew Taylor and colleagues, with an educational jay from [employer]. Thrive Questionnaire Date Thrive assessed: 10/31/23 I am a: Patient What is your living situation today?: I have a steady place to live Within the past 12 months, did the food you bought not last and you didn't have the money to get more?: Never true Within the past 12 months, did you worry whether your food would run out before you got money to buy more?: Never true Do you have trouble paying for medicines?: No Do you have trouble getting transportation to medical appointments?: No Do you have trouble paying your heating and electricity bill?: No Do you have trouble taking care of your child, family member or friend?: No Do you have trouble with day-to-day activities such as bathing, preparing meals, shopping, managing finances, etc.?: No Are you currently unemployed and looking for a job?: No Are you interested in more education?: No Please select the resources that you would like help with: None Currently or been in a relationship where the following occur: no concerns reported THRIVE Score: 0 AUDIT C Alcohol Use Questionnaire (AUDIT-C) 1. How often do you have a drink containing alcohol?: Monthly or less 2. How many drinks containing alcohol do you have on a typical day when you are drinking?: 1 or 2 3. How often do you have six or more drinks on one occasion?: Never Total Score: 1 Score Reviewed/Action Taken: Yes FLORECITA-7 AMB Questionnaire FLORECITA-7 Date FLORECITA - 7 assessed: 10/31/23 Feeling nervous, anxious, or on edge: 0 = Not at all Not being able to stop or control worryin = Not at all Worrying too much about different things: 0 = Not at all Trouble relaxin = Not at all Being so restless that it is hard to sit still: 0 = Not at all Becoming easily annoyed or irritable: 0 = Not at all Feeling afraid as if something awful might happen: 0 = Not at all Total FLOERCITA-7 score (0-4 normal; 5-9 mild; 10-14 moderate; 15-21 severe): 0 Source: Developed by Drs. Maxime Porter, Carin Hart, Matthew Taylor and colleagues, with an educational jay from [employer]. FLORECITA-7 Assessment Billing FLORECITA-7 Assessment Tool: FLORECITA-7 Assessment 76168 Review of Systems Const Denies body aches, Denies fatigue, Denies fever(s), Denies headache(s) and Denies weakness Eyes Denies change in vision ENT Denies dizziness, Denies headache(s), Denies nasal congestion and Denies nasal discharge Card Denies chest pain, Denies lightheadedness, Denies palpitations and Denies dyspnea Resp Denies chest congestion, Denies cough, Denies dyspnea and Denies wheezing GI Denies abdominal pain, Denies change in bowel habits and Denies heartburn Denies dysuria, Denies urinary frequency and Denies urinary urgency Musc Reports stiffness (Occasional) Skin/Breast Denies dry skin, Denies lesions and Denies rash Neuro Denies dizziness, Denies headache(s) and Denies weakness Psych Reports no additional complaints Endo Denies fatigue, Denies polydipsia, Denies polyuria and Denies palpitations Aller/Immun Denies seasonal rhinorrhea and Denies wheezing Physical exam (Primary Care) Vital Signs: Last Vital Signs Pulse 59 10/31/23 10:43 BP 132/76 10/31/23 10:43 Pulse Ox 97 10/31/23 10:43 Oxygen Delivery Method Room Air 10/31/23 10:43 BMI result Body Mass Index 36.7 BMI Assessment/Plan discussion: High BMI High, discussed plan: lifestyle, weight reduction, dietary and physical activity Tobacco/Smoking Status: Tobacco use Status Tobacco use date assessed 10/31/23 10/31/23 10:44 Patient Tobacco Use Status Never used Tobacco 10/31/23 10:42 e-Cigarette/Vaping Use Never Used 10/31/23 10:42 PHQ-9: PHQ-9 Score PHQ-9: Total score 1 10/31/23 11:07 Depression Screening Interpretation: Negative Thrive Assessment: Date of Thrive Assessment Date Thrive assessed 10/31/23 10/31/23 10:57 Currently or been in a relationship where the following occur: no concerns reported Const General: comfortable, no acute distress and alert Orientation/consciousness: patient oriented x3 HENMT Ears: external ears normal, TM's normal bilaterally and EAC's normal General nose exam: Normal external nose present and No nasal discharge present Mouth: oropharynx normal and moist mucous membranes Eyes General: appearance normal, both eyes and all related structures Conjunctivae: conjunctivae normal Sclerae: sclerae normal Pupils: Equal, round and reactive pupils present EOM: EOMs intact bilaterally Neck Neck: Yes full ROM, Yes no lymphadenopathy and Yes supple Resp Effort & Inspection: normal respiratory effort and able to speak in complete sentences Auscultation: clear to auscultation bilaterally Cardio Rate: regular rate Rhythm: regular rhythm Heart sounds: S1 normal heart sound present and S2 normal heart sound present GI Palpation (GI): Soft to palpation, nontender and no masses Auscultation: normal bowel sounds General: Yes no CVA tenderness Male General Exam: Yes normal external exam Back/Spine/Pelvis Back: no CVA tenderness and No back tenderness Skin General skin exam: no rashes or lesions noted Neuro General: patient oriented x3, gait normal, tone normal, moves all extremities, Normal light touch and pain sensation and no focal motor deficits Cranial nerves: Yes CN's II-XII intact bilaterally and Yes Equal, round and reactive pupils present Cognition (Neuro): normal cognition Extrem General: Yes full ROM, Yes no joint enlargement, Yes no clubbing, cyanosis or edema and Yes no calf tenderness Psych Appearance: grossly normal and well kempt Mental Status: mental status grossly normal Speech and movement: Normal speech and movement present Affect: normal affect Results Reviewed Results Reviewed: Name: Roberto Carlos Richardson Age/Sex: 68/M : 1955 Unit#: [id number] Attend Dr: Stephanie Pedersen MD Re10/28/23 Status: DEP REF Location: [facility] Disch: SPEC : [id number] AMANDA: 10/28/23 STATUS: COMP REQ : [id number] RECD: 10/28/[address]: Stephanie Pedersen MD COMP: 10/28/23 ENTERED: 10/28/[address] [facility] [address]: ORDERED: Met Prof Fast, Uric, AST, ALT, Lipid Panel, Vitamin D 25-OH Test Result Flag Reference Sodium 144 135-145 mmol/L Potassium 3.8 3.3-5.1 mmol/L CL 108 96-108 mmol/L CO2 26 22-29 mmol/L Gap 14 12-20 BUN 27 H 9-16 mg/dL Creat 1.38 0.5-1.4 mg/dL EGFR 51 NOTE: For [place] individuals, multiply the result by 1.210. Chronic Kidney Disease: Estimated GFR < 60 mL/min/1.73m2 Severe Kidney Disease: Estimated GFR < 15 mL/min/1.73m2 FBS 102 H 60-99 mg/dL A fasting glucose from 100-125 mg/dl is considered impaired (pre-diabetes). Uric Acid 5.8 3.4-7.0 mg/dL CA 9.9 8.4-10.2 mg/dL AST (GOT) 32 5-37 U/L ALT (GPT) 40 0-40 U/L Triglyceride 133 <150 mg/dL Desirable Triglyceride: less than 150 mg/dL Borderline High Triglyceride 150-199 mg/dL High Triglyceride: 200-499 mg/dL Very High Triglyceride: greater than or equal to 5OO mg/dL Cholesterol 151 <200 mg/dL Desirable Cholesterol: less than 200 mg/dL Borderline High Cholesterol: 200-239 mg/dL High Cholesterol: greater than 239 mg/dL LDL Calculated 90 <100 mg/dL Desirable LDL: less than 100 mg/dL Near Optimal/Above Optimal LDL: 110-129 mg/dL Borderline High LDL: 130-159 mg/dL High LDL: 160-189 mg/dL Very High LDL: greater than or equal to 190 mg/dL HDL 35 L >40 mg/dL Desirable HDL: greater than 40 mg/dL Note: This HDL assay may give artificially low results in patients with liver disease. Vit D 25-OH Tot 84.0 >30 ng/mL Health Based Reference Values* < 20 ng/mL Deficient 20-30 ng/mL Insufficient > 30 ng/mL Sufficient Laboratory Tests 10/28/23 09:54 Total PSA 0.47 Coding Level of Care Code Est Pt Prev Care >65y(91206) Diagnoses Annual visit for general adult medical examination with abnormal findings Z00.01 Essential hypertension I10 Dyslipidemia E78.5 Class 2 severe obesity with serious comorbidity and body mass index (BMI) of 36.0 to 36.9 in adult, unspecified obesity type E66.812; E66.01; Z68.36 Obesity type: unspecified obesity type Obesity classification: adult class 2 (BMI 35 - 39.9) Serious obesity comorbidity presence: with serious comorbidity Body mass index: BMI 36.0-36.9 Post-traumatic osteoarthritis of right knee M17.31 Osteoarthritis location: knee Osteoarthritis type: post-traumatic Laterality: right Hypertensive nephrosclerosis I12.9 Additional Codes FLORECITA-7 Assessment Billing - FLORECITA-7 Assessment Tool: FLORECITA-7 Assessment 14698 ([id number])
[2023-10-31 10:43] VITALS: BP 132/76; PULSE 59; O2SAT 97; BMI 36.7
== END 2023-10-31 11:31 | disposition home or self-care (01) ==
PROVIDERS: Visit Provider Internal Medicine
DX: Z00.01 Encounter for general adult medical examination with abnormal findings (principal); I10 Essential (primary) hypertension; E78.5 Hyperlipidemia, unspecified; E66.01 Morbid (severe) obesity due to excess calories; Z68.36 Body mass index [BMI] 36.0-36.9, adult; M17.31 Unilateral post-traumatic osteoarthritis, right knee; I12.9 Hypertensive chronic kidney disease with stage 1 through stage 4 chronic kidney disease, or unspecified chronic kidney disease
CPT/HCPCS: 99499

== ENCOUNTER 2023-12-18 07:36 | Outpatient (AMB) | payer OTHER, SELFPAY ==
--- NOTE | 2023-12-18 07:41 | A.OFFVIS_ITS ---
Vital Signs 12/18/23 07:42 Height 5 ft 10 in Weight 256 lb BMI 36.7 Intake Visit Reasons: OV-right knee injection follow up Intake Note: Roberto Carlos is a 68 year old male who presents today for a follow up of his right knee OA, the knee was last injected on 09/10/23. Patient reports that he found good relief for about a month. He did aggravate his knee while walking on vac ations in [place] and [place]. He denies any locking or giving way. He does take Tylenol or Aleve as needed for his discomfort. He will also wear a knee brace when he is playing [employer]. Allergies No Known Allergies Allergy (Verified 10/31/23 11:08) Medication List - Last Reconciled 12/18/23 by Shabbir Leblanc MD allopurinol 100 mg PO DAILY amlodipine 2.5 mg PO DAILY ascorbate calcium (vitamin C) 500 mg PO DAILY atorvastatin 20 mg PO DAILY B-complex with vitamin C 1 cap PO DAILY cholecalciferol (vitamin D3) 50 mcg PO DAILY fenofibrate micronized 134 mg PO DAILY hydrochlorothiazide 25 mg PO DAILY lisinopril 30 mg PO DAILY meloxicam 15 mg PO DAILY PRN omega-3 fatty acids (Fish Oil Concentrate) 1,000 mg PO DAILY potassium chloride ER 10 mEq PO DAILY turmeric mg PO vitamin A 2,400 mcg PO DAILY PFSH Medical History Right knee pain Hypertensive nephrosclerosis Vitamin D deficiency High serum creatinine Osteoarthritis COVID-19 virus infection Obesity Vitamin D deficiency Septic arthritis Gout Essential hypertension Dyslipidemia Surgical History History of colonoscopy History of septic arthritis Family History Father HTN (hypertension) Stroke Mother COPD (chronic obstructive pulmonary disease) Mental health disorder Maternal Uncle Lung cancer Non-insulin dependent diabetes mellitus Substance use disorder Maternal Aunt Substance use disorder Paternal Aunt Substance use disorder Paternal Uncle Substance use disorder Social History Housing: House Alcohol intake: current Patient Tobacco Use Status: Never used Tobacco e-Cigarette/Vaping Use: Never Used service: No Current occupational status: retired Cognitive needs: No Hearing needs: No Vision needs: No Physical Exam Vital Signs: BMI result Body Mass Index 36.7 Const Other: Well-nourished well-developed very friendly male awake alert and oriented x3 in no acute distress Extrem Other: Bilateral lower extremity examination shows good capillary refill, no skin lesions noted, normal sensation light touch Right knee examination shows a minimal effusion, palpable crepitus with range of motion, discomfort with range of motion, no instability Results Reviewed Results Reviewed: X-rays of the patient's right knee show joint space narrowing, subchondral sclerosis, no acute bony abnormalities Assessment & Plan Assessment & Plan (1) Arthritis of right knee: Code(s): M17.11 - Unilateral primary osteoarthritis, right knee Category: Medical Plan Mr. Richardson presents with intermittent right knee discomfort due to degenerative joint disease. I had a lengthy discussion with the patient regarding the treatment options. At this point the symptoms are tolerable to him. We will hold off on another injection. He will continue taking Aleve or Tylenol as needed. He will follow up with me on an as-needed basis should his symptoms worsen in any way. Feel free to call me at any time should questions regarding his orthopedic management arise. I spent 21 minutes in reviewing the patient's records and imaging studies, seeing the patient and documenting in the medical record. Coding Level of Care Code Est Pt Level 3 (47574) Diagnoses Arthritis of right knee M17.11
[2023-12-18 07:42] VITALS: BMI 36.7
== END 2023-12-18 07:57 | disposition home or self-care (01) ==
PROVIDERS: PCP Internal Medicine; Visit Provider Orthopaedic Surgery
DX: M17.11 Unilateral primary osteoarthritis, right knee (principal)
CPT/HCPCS: 99213

== ENCOUNTER → 2023-12-18 07:36 | Outpatient (BNVA) | payer OTHER, SELFPAY | PROVIDERS: PCP Internal Medicine; Visit Provider Orthopaedic Surgery ==

== ENCOUNTER 2024-02-13 14:28 | Outpatient (AMB) | payer OTHER, SELFPAY ==
--- NOTE | 2024-02-13 14:47 | MHC.OFFWIV ---
Intake Vital Signs 02/13/24 14:49 Height 5 ft 10 in Weight 259 lb BMI 37.2 BP 130/80 Blood Pressure Location Lt brachial Position Sitting Pulse 75 Pulse Source Pulse Oximeter Pulse Oximetry (%) 98 Oxygen Delivery Method Room Air Intake Visit Reasons: EP LT foot pain Intake Note: Patient here for left foot pain that started a few months ago. He states he was playing tennis and was wearing incorrect shoes but pain has progressed. Patient Tobacco Use Status: Never used Tobacco Allergies No Known Allergies Allergy (Verified 02/13/24 14:50) Do you need a note to return to daycare/school/sports/work: No HPI HPI Comments History of Present Illness Details 68 y/o male patient who presents to the walk in clinic with c/o left foot pain for few days. Denies injury or trauma. [facility] Medical History Right knee pain Hypertensive nephrosclerosis Vitamin D deficiency High serum creatinine Osteoarthritis COVID-19 virus infection Obesity Vitamin D deficiency Septic arthritis Gout Essential hypertension Dyslipidemia Surgical History History of colonoscopy History of septic arthritis Family History Father HTN (hypertension) Stroke Mother COPD (chronic obstructive pulmonary disease) Mental health disorder Maternal Uncle Lung cancer Non-insulin dependent diabetes mellitus Substance use disorder Maternal Aunt Substance use disorder Paternal Aunt Substance use disorder Paternal Uncle Substance use disorder Social History Housing: House Alcohol intake: current Patient Tobacco Use Status: Never used Tobacco e-Cigarette/Vaping Use: Never Used service: No Current occupational status: retired Cognitive needs: No Hearing needs: No Vision needs: No Review of Systems Const All systems reviewed & are unremarkable except as noted in HPI and below Physical Exam Vital Signs: Last Vital Signs Pulse 75 02/13/24 14:49 BP 130/80 02/13/24 14:49 Pulse Ox 98 02/13/24 14:49 Oxygen Delivery Method Room Air 02/13/24 14:49 BMI result Body Mass Index 37.2 Const General: cooperative and no acute distress Orientation/consciousness: patient oriented x3 Skin General skin exam: no rashes or lesions noted Nails: yellow and thickened (left toes) Neuro General: patient oriented x3 Extrem Right lower extremity: normal to inspection and full ROM Left lower extremity: ankle Details: normal to inspection, no edema and normal ROM; no tenderness, no swelling and no crepitus Psych Speech and movement: Normal speech and movement present Assessment & Plan Assessment & Plan (1) Sprain of left ankle: Code(s): S93.402A - Sprain of unspecified ligament of left ankle, initial encounter Qualifiers: Encounter type: initial encounter Involved ligament of ankle: unspecified ligament Qualified Code(s): S93.402A - Sprain of unspecified ligament of left ankle, initial encounter Plan: NSAIDs for pain. F/U with Pod as scheduled. IceHot Elevate joint Coding Level of Care Code Est Pt Level 3 (21314) Diagnoses Sprain of left ankle, unspecified ligament, initial encounter S93.402A Encounter type: initial encounter Involved ligament of ankle: unspecified ligament Time Spent (min) 15
[2024-02-13 14:49] VITALS: BP 130/80; PULSE 75; O2SAT 98; BMI 37.2
== END 2024-02-13 15:56 | disposition home or self-care (01) ==
PROVIDERS: PCP Internal Medicine; Visit Provider Nurse Practitioner Family
DX: S93.402A Sprain of unspecified ligament of left ankle, initial encounter (principal)
CPT/HCPCS: 99213

== ENCOUNTER 2024-05-08 13:12 | Outpatient (REF) | payer OTHER, SELFPAY ==
[2024-05-08 16:01] LABS: MANUAL DIFF FLAG NO
[2024-05-08 16:04] LABS: Basophils Absolute Auto 0.1 X10*3/uL (0.0-0.2); Basophils Percent Auto 0.8 % (0-2); Eosinophils Absolute Auto 0.3 X10*3/uL (0.0-0.4); Eosinophils Percent Auto 4.2 % (0-4); Hemoglobin 14.5 g/dl (14.0-18.0); Imm Gran Abs Auto 0.02 X10*3/uL (0.00-0.03); Imm Gran Pct Auto 0.3 % (0.0-0.4); Lymphocytes Absolute Auto 1.5 X10*3/uL (1.2-4.9); Lymphocytes Percent Auto 20.8 % (20-40); Mean Corpuscular HGB Conc 33.7 g/dl (31.0-36.0); Mean Corpuscular Hemoglobin 30.9 pg (27.0-33.0); Mean Corpuscular Volume 91.5 fL (80.0-98.0); Mean Platelet Volume 10.3 fL (9.4-12.4); Monocytes Absolute Auto 0.8 X10*3/uL (0.1-1.2); Monocytes Percent Auto 10.2 % (2-11); Neutrophils Absolute Auto 4.7 x10*3/uL (2.0-8.3); Neutrophils Percent Auto 63.7 % (45-73); Platelet Count 263 X10*3/uL (160-400); White Blood Count 7.4 X10*3/uL (4.8-10.8)
[2024-05-08 16:23] LABS: Creatinine Urine 211.03 mg/dL; Protein/Creatinine Ratio, Ur 0.08 (<0.2); Total Protein Urine Random 17 mg/dL (<12)
[2024-05-08 16:27] LABS: Alanine Aminotransferase 53 U/L (0-40); Alkaline Phosphatase 43 U/L (39-117); Anion Gap 10 (12-20); Aspartate Amino Transferase 48 U/L (5-37); Bilirubin Total 0.7 mg/dL (0.0-1.0); Blood Urea Nitrogen 23 mg/dL (9-16); Calcium 10.1 mg/dL (8.4-10.2); Carbon Dioxide 31 mmol/L (22-29); Chloride 107 mmol/L (96-108); Estimated Glomerular Filt Rate > 60; Glucose Random 91 mg/dL (60-115); Magnesium 1.9 mg/dL (1.6-2.6); Phosphorus 3.1 mg/dL (2.7-4.5); Potassium 3.9 mmol/L (3.3-5.1); Sodium 144 mmol/L (135-145); Total Protein 6.9 g/dL (6.5-8.0); Uric Acid 5.7 mg/dL (3.4-7.0)
[2024-05-08 16:32] LABS: Parathyroid Hormone Intact 22.5 pg/mL (8.7-77.1)
[2024-05-08 16:45] LABS: Vitamin D 25-OH Total 70.7 ng/mL (>30)
== END 2024-05-08 13:13 | disposition home or self-care (01) ==
LOC: HO.HMGCLDS 13:12
PROVIDERS: PCP Internal Medicine; Visit Provider Internal Medicine Nephrology
DX: N18.31 Chronic kidney disease, stage 3a (principal); I10 Essential (primary) hypertension; M10.9 Gout, unspecified; N28.1 Cyst of kidney, acquired
CPT/HCPCS: 36415; 80053; 82306; 82570; 83735; 83970; 84100; 84156; 84550; 85025

== ENCOUNTER 2024-05-27 07:34 | Outpatient (AMB) | payer OTHER, SELFPAY ==
--- NOTE | 2024-05-27 07:37 | A.OFFVIS_ITS ---
Intake Visit Reasons: Right knee pain Intake Note: Roberto Carlos is a 68 year old male who presents with complaints of progressively worsening right knee pain. He describes his pain as sharp in nature. He did have a cortisone injection given into his right knee earlier this year. He got fairly good relief from that injection. Denies any locking or giving way. He has tried Tylenol and anti-inflammatory medicines which gave him only mild relief. He wishes to hold off on total knee replacement surgery if at all possible. Allergies No Known Allergies Allergy (Verified 05/27/24 07:41) Medication List - Last Reconciled 05/27/24 by Shabbir Leblanc MD allopurinol 100 mg PO DAILY amlodipine 2.5 mg PO DAILY ascorbate calcium (vitamin C) 500 mg PO DAILY atorvastatin 20 mg PO DAILY B-complex with vitamin C 1 cap PO DAILY cholecalciferol (vitamin D3) 50 mcg PO DAILY fenofibrate micronized 134 mg PO DAILY hydrochlorothiazide 25 mg PO DAILY lisinopril 30 mg PO DAILY meloxicam 15 mg PO DAILY PRN omega-3 fatty acids (Fish Oil Concentrate) 1,000 mg PO DAILY potassium chloride ER 10 mEq PO DAILY turmeric mg PO vitamin A 2,400 mcg PO DAILY PFSH Medical History Right knee pain Hypertensive nephrosclerosis Vitamin D deficiency High serum creatinine Osteoarthritis COVID-19 virus infection Obesity Vitamin D deficiency Septic arthritis Gout Essential hypertension Dyslipidemia Surgical History History of colonoscopy History of septic arthritis Family History Father HTN (hypertension) Stroke Mother COPD (chronic obstructive pulmonary disease) Mental health disorder Maternal Uncle Lung cancer Non-insulin dependent diabetes mellitus Substance use disorder Maternal Aunt Substance use disorder Paternal Aunt Substance use disorder Paternal Uncle Substance use disorder Social History Housing: House Alcohol intake: current Patient Tobacco Use Status: Never used Tobacco e-Cigarette/Vaping Use: Never Used service: No Current occupational status: retired Cognitive needs: No Hearing needs: No Vision needs: No Physical Exam Const Other: Well-nourished well-developed very friendly male awake alert and oriented x3 in no acute distress Extrem Other: Bilateral lower extremity examination shows good capillary refill, no skin lesions noted, normal sensation light touch Right knee examination shows a mild effusion, palpable crepitus with range of motion, pain with range of motion, no instability Office Procedures AMB Joint Injection/Aspiration Joint Injection/Aspiration Primary Site: right knee Prep: site was prepped using aseptic technique Injected: 40 mg of, DepoMedrol and 1% plain lidocaine Procedure: The patient tolerated the procedure well Coding - Large joint Procedure code (CPT) selection complete Results Reviewed Results Reviewed: X-rays of the patient's right knee taken previously show joint space narrowing, subchondral sclerosis, no acute bony abnormalities Assessment & Plan Assessment & Plan (1) Arthritis of right knee: Code(s): M17.11 - Unilateral primary osteoarthritis, right knee Category: Medical (2) Right knee pain: Code(s): M25.561 - Pain in right knee Category: Medical Qualifiers: Chronicity: chronic Qualified Code(s): M25.561 - Pain in right knee; G89.29 - Other chronic pain Plan Roberto Carlos presents with progressively worsening right knee pain due to degenerative joint disease. I had a lengthy discussion with the patient reg arding the treatment options. The risks and benefits of a right knee cortisone injection were discussed at length with the patient. The patient wished to proceed. Prior to the injection I aspirated 2 cc of clear fluid from his right knee. He tolerated the injection well. He will continue with his activity modifications. He will contact me prior to his follow-up appointment in 3 months should any questions or concerns arise. Feel free to call me at any time should questions regarding his orthopedic management arise. I spent 21 minutes in reviewing the patient's records and imaging studies, seeing the patient and documenting in the medical record. Orders: Orders AMB Joint Injection/Aspiration Today M17.11 - Unilateral primary osteoarthritis, right knee Coding Level of Care Code Est Pt Level 3 (60965) Complex EM visit Add On G2211 Diagnoses Arthritis of right knee M17.11 Chronic pain of right knee M25.561; G89.29 Chronicity: chronic CPT Codes Coding - Large joint: 41424 - Large joint ([id number])
--- OUTSIDE RECORDS SUMMARY | 2024-06-02 16:17 | XMS_ITS ---
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 Generated for Printi ng/Faxing/eTransmitting on:?06/02/2024 04:17 PM EST
--- OUTSIDE RECORDS SUMMARY | 2024-06-02 16:17 | XMS_ITS | Patient Health Record ---
[facility] Address [address] [facility] [place] [address] Care Team Providers Care Automatic Spinning Lathe Operator Name Role Phone Nuvia MORRIS, Stephanie Velasquez Primary Care Provider Un available Sesar Miller Unavailable [phone] Reason For Referral No Information Social History Tobacco Use: Social History Observation Description Date Details (start date - stop date) Never Smoker NA - NA Tobacco use other than smoking: Question Answer Notes Are you an other tobacco user? No Tobacco Control (Standard) Question Answer Notes Tobacco use: Nonsmoker Additional Findings: Tobacco non-user Current no nsmoker AUDIT-C (Standard) Question Answer Notes Did you have a drink contain ing alcohol in the past year? Yes How often did you have six o r more drinks on one occasion in the past year? Declined to specify (0 point) How many drinks did you have on a typical day when you were drinking in the past year? Declined to specify (0 point) How often did you have a dri nk containing alcohol in the past year? Declined to specify (0 point) Points 0 Interpretation Negative Encounters Encounter Location Date Provider Diagnosis [facility] [address] [facility] [place] [address] 02/13/2024 Sesar Miller Plan Of Treatment Next Appt Details Provider Name:Sesar Miller , 06/09/2024 01:00:00 PM, [address] [place], [address], Insurance Providers Payer Name Payer Address Payer Phone Subscriber Number Group Number Insured Name Patient Relationship to Insured Coverage Start Date Coverage End Date [facility] [id number] [address] [address] [place] [address] [phone] [id number] Roberto Carlos Richardson Self - patient is the insured Medical (General) History Medical History History ICD Code Arthritis Back,Hip,and Knee pain CAD (Cholesterol) Glaucoma Gout High Blood Pressure Measles Chicken pox Surgical History Surgery Date(Month/Year) shoulder surgery - Drained 2000
== END 2024-05-27 07:53 | disposition home or self-care (01) ==
PROVIDERS: PCP Internal Medicine; Visit Provider Orthopaedic Surgery
DX: M17.11 Unilateral primary osteoarthritis, right knee (principal)
CPT/HCPCS: 20610; 99213

== ENCOUNTER → 2024-05-27 07:34 | Outpatient (BNVA) | payer OTHER, SELFPAY | PROVIDERS: PCP Internal Medicine; Visit Provider Orthopaedic Surgery | DX: M17.11 Unilateral primary osteoarthritis, right knee (principal); G89.29 Other chronic pain | CPT/HCPCS: 20610; J1010; J2003 ==

== ENCOUNTER 2024-10-22 09:09 | Outpatient (AMB) | payer MEDICARE, SELFPAY ==
--- NOTE | 2024-10-22 09:21 | MHC.OFFVIS ---
Vital Signs 10/22/24 09:23 Height 5 ft 10 in Weight 259 lb BMI 37.2 Intake Visit Reasons: Bilateral knee pains Intake Note: Roberto Carlos is a 69 year old male who presents with complaints of bilateral knee pains. He describes his pains as sharp in nature. His pains have gotten worse over the last 3 months in spite of continued non operative treatments. He has failed the last 3 months of conservative treatment which has included a home exercise program, Tylenol and anti-inflammatory medicines. He wishes to hold off on surgery if at all possible. His knee pains are interfering with his activities of daily living and his ability to sleep well through the night. Allergies No Known Allergies Allergy (Verified 10/22/24 09:21) Medication List - Last Reconciled 10/22/24 by Shabbir Leblanc MD allopurinol 100 mg PO DAILY amlodipine 2.5 mg PO DAILY ascorbate calcium (vitamin C) 500 mg PO DAILY atorvastatin 20 mg PO DAILY B-complex with vitamin C 1 cap PO DAILY cholecalciferol (vitamin D3) 50 mcg PO DAILY fenofibrate micronized 134 mg PO DAILY hydrochlorothiazide 25 mg PO DAILY lisinopril 30 mg PO DAILY meloxicam 15 mg PO DAILY PRN omega-3 fatty acids (Fish Oil Concentrate) 1,000 mg PO DAILY potassium chloride ER 10 mEq PO DAILY turmeric mg PO vitamin A 2,400 mcg PO DAILY PFSH Medical History CKD stage 3a, GFR 45-59 ml/min Right knee pain Hypertensive nephrosclerosis Vitamin D deficiency High serum creatinine Osteoarthritis COVID-19 virus infection Obesity Vitamin D deficiency Septic arthritis Gout Essential hypertension Dyslipidemia Surgical History History of colonoscopy History of septic arthritis Family History Father HTN (hypertension) Stroke Mother COPD (chronic obstructive pulmonary disease) Mental health disorder Maternal Uncle Lung cancer Non-insulin dependent diabetes mellitus Substance use disorder Maternal Aunt Substance use disorder Paternal Aunt Substance use disorder Paternal Uncle Substance use disorder Social History Housing: House Alcohol intake: current Patient Tobacco Use Status: Never used Tobacco e-Cigarette/Vaping Use: Never Used service: No Current occupational status: retired Cognitive needs: No Hearing needs: No Vision needs: No Physical Exam Vital Signs: BMI result Body Mass Index 37.2 Const Other: Well-nourished well-developed very friendly male awake alert and oriented x3 in no acute distress Extrem Other: Bilateral lower extremity examination shows good capillary refill, no skin lesions noted, normal sensation light touch Bilateral knee examination shows minimal effusions, palpable crepitus with range of motion, pain with range of motion, no instability Office Procedures AMB Joint Injection/Aspiration Joint Injection/Aspiration Primary Site: left knee Prep: site was prepped using aseptic technique Injected: 60 mg of (Durolane viscosupplementation) and 1% plain lidocaine Procedure: The patient tolerated the procedure well Coding - Large joint Procedure code (CPT) selection complete AMB Joint Injection/Aspiration Joint Injection/Aspiration Primary Site: right knee Prep: site was prepped using aseptic technique Injected: 60 mg of (Durolane viscosupplementation) and 1% plain lidocaine Procedure: The patient tolerated the procedure well Coding - Large joint Procedure code (CPT) selection complete Assessment & Plan Assessment & Plan (1) Osteoarthritis of left knee: Code(s): M17.12 - Unilateral primary osteoarthritis, left knee Category: Medical (2) Osteoarthritis of right knee: Code(s): M17.11 - Unilateral primary osteoarthritis, right knee Category: Medical Plan Mr. Richardson presents with bilateral knee pains due to osteoarthritis. The risks and benefits of bilateral knee Durolane viscosupplementation injections were discussed at length with the patient. The patient wished to proceed. He tolerated the injections well. He will continue with his home exercise program. He will contact me prior to his follow-up appointment in 3 months should any questions or concerns arise. Feel free to call me at any time should questions regarding his orthopedic management arise. I spent 22 minutes in reviewing the patient's records and imaging studies, seeing the patient and documenting in the medical record. Orders: Orders AMB Joint Injection/Aspiration Today M17.12 - Unilateral primary osteoarthritis, left knee AMB Joint Injection/Aspiration Today M17.11 - Unilateral primary osteoarthritis, right knee Coding Level of Care Code Est Pt Level 3 (36941) Complex EM visit Add On G2211 Diagnoses Osteoarthritis of left knee M17.12 Osteoarthritis of right knee M17.11 CPT Codes Coding - Large joint: 03885 - Large joint ([id number]) Coding - 29036 Large joint: 30648 - Large joint ([id number])
[2024-10-22 09:23] VITALS: BMI 37.2
--- OUTSIDE RECORDS SUMMARY | 2024-10-22 09:53 | XMS_ITS | Patient Health Record ---
[facility] Address [address] [place] [address] Care Team Providers Care Wardrobe Technician Name Role Phone Nuvia MORRIS, Stephanie Velasquez Primary Care Provider Un available Sesar Miller Unavailable [phone] Allergies No Known Allergies Reason For Referral No Information Medications Medication SIG (Take, Route, Frequency, Duration) Notes Start Date End Date Status Lisinopril 30 MG 1 tablet Orally Once a day Active Meloxicam 15 MG 1 tablet Orally Once a day Active amLODIPine Besylate 2.5 MG 1 tablet Oral ly Once a day Active hydroCHLOROthiazide 25 MG 1 tablet in th e morning Orally Once a day 06/02/2024 Active Allopurinol 100 MG 1 tablet Orally Once a day 06/02/2024 Active Atorvastatin Calcium 20 MG 1 tablet Oral ly Once a day 06/02/2024 Active Fenofibrate 134 MG 1 capsule with a shari l Orally Once a day Active Social History Tobacco Use: Social History Observation [...] specify (0 point) Points 0 Interpretation Negative Problems Problem Type SNOMED Code ICD Code Onset Dates Problem Status W/U Status Risk Notes Problem Onychomycosis (895771532) Onychomycosis (B35.1) Active confirmed Problem Essential hypertension (42789130) Essential hypertension (I10) Active confirmed Vital Signs Blood pressure diastolic 70 mm Hg 06/09/2024 Height 5ft 11 inch in 06/09/2024 Blood pressure systolic 130 mm Hg 06/09/2024 Weight 250 lbs 06/09/2024 BMI 34.86 kg/m2 06/09/2024 Procedures Procedure Date Ordered Date Performed Result Body Sit e 70217-CLELQHP NAIL, 6 OR MORE 06/09/2024 N/A Encounters Encounter Location Date Provider Diagnosis [facility] [address] 06/09/2024 Sesar Miller Pain in left foot M79.672 ; Hypertrophy of bone, 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 ; Flat foot [pes planus] (acquired), left foot M21.42 ; Posterior tibial tendinitis of left lower extremity M76.822 ; Pain in right toe(s) M79.674 ; Onychomycosis B35.1 and Pain in left toe(s) M79.[address] [address] 02/13/2024 Sesar Miller [address] [address] 06/09/2024 Seasr Miller Assessments Encounter Date Diagnosis (ICD Code) Assessment Notes Treatment Notes Treatment Clinical Notes Section Notes 06/09/2024 Pain in left foot (ICD-10 - M79.672) 06/09/2024 Hypertrophy of bone, left ankle and foot (ICD-10 - M89.372) 06/09/2024 Flat foot [pes planus] (acquired), left foot (ICD-10 - M21.42) 06/09/2024 Posterior tibial tendinitis of left lower extremity (ICD-10 - M76.822) 06/09/2024 Pain in right toe(s) (ICD-10 - M79.674) 06/09/2024 Onychomycosis (ICD-10 - B35.1) 06/09/2024 Pain in left toe(s) (ICD-10 - M79.675) Plan Of Treatment Pending Test Test Name Order Date X ray : Foot, left 3V 06/09/2024 55791-LECOQNE NAIL, 6 OR MORE 06/09/2024 Insurance Providers Payer Name Payer Address Payer Phone Subscriber Number Group Number Insured Name Patient Relationship to Insured Coverage Start Date Coverage End Date [facility]-[id number] [address] [address] [place] [address] [id number] Roberto Carlos Richardson Self - patient is the insured Medical (General) History Medical History History ICD Code Arthritis Back,Hip,and Knee pain CAD (Cholesterol) Glaucoma Gout High Blood Pressure Measles Chicken pox Surgical History Surgery Date(Month/Year) shoulder surgery - Drained 2000
--- OUTSIDE RECORDS SUMMARY | 2024-10-22 09:53 | XMS_ITS ---
[facility] Organization [facility] [place] Address [address] [place] [address] Care Team Providers Care Bombsight Specialist Name Role Phone Nuvia MORRIS, Stephanie Velasquez Primary Care Provider Un available Sesar Miller Unavailable [phone] Allergies No Known Allergies REASON FOR VISIT Foot pain, Painful nail(s) aggravated by shoes causing difficulty standing/walking Medications Medication SIG (Take, Route, Frequency, Duration) Notes Start Date End Date Status amLODIPine Besylate 2.5 MG 1 tablet Oral [...] shari l Orally Once a day Active Lisinopril 30 MG 1 tablet Orally Once a day Active Meloxicam 15 MG 1 tablet Orally Once a day Active Social History [...] Problem Status W/U Status Risk Notes Problem Essential hypertension (19256738) Essential hypertension (I10) Active confirmed Problem Onychomycosis (869071851) Onychomycosis (B35.1) Active confirmed Vital Signs Height 5ft 11 inch in 06/09/2024 Weight 250 lbs 06/09/2024 BMI 34.86 kg/m2 06/09/2024 Blood pressure systolic 130 mm Hg 06/09/20 24 Blood pressure diastolic 70 mm Hg 024 Procedures Procedure Date Ordered Date Performed Result Body Sit e 11346-TKDNCCN NAIL, 6 OR MORE 06/09/2024 N/A Encounters Encounter Location Date Provider Diagnosis [facility] [address] [place] [address] 06/09/2024 Sesar Miller Pain in left foot M79.672 ; Hypertrophy of bone, 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 ; Flat foot [pes planus] (acquired), left foot M21.42 ; Posterior tibial tendinitis of left lower extremity M76.822 ; Pain in right toe(s) M79.674 ; Onychomycosis B35.1 and Pain in left toe(s) M79.675 Assessments Encounter Date Diagnosis (ICD Code) Assessment [...] X ray : Foot, left 3V 06/09/2024 [id number] NAIL, 6 OR MORE 06/09/2024 Next Appt Details Follow Up: prn, Reason: Procedure Notes * Category Sub-Category Detail Notes Debride Nail 6-10 Nail debridement Due to the cl inical pathology outlined in the exam findings, performance of this nail treatment is medically necessary as its management by an unskilled/untrained nonprofessional would put this patients foot and overall health at risk. Therefore, debridement to affected nail(s), as described in exam ( TA, T1, T2, T3, T4, T5, T6, T7, T8, T9), was performed exclusively by the physician of record to reduce/remove overall nail length, girth, thickness, subungual debris, and necrotic tissue, by manual and/or electrical means through the use of a nail nipper and/or dremel-type eyeglass lens grinder, to a more viable healthy nail plate or bed tissue 6-10 nails in total. Silver nitrate was used for any petechial bleeding as necessary. Definitive antifungal treatment options, both pharmaceutical and surgical, have been reviewed and discussed with the patient. The patient solely prefers the use of intermittent/as needed professional debridement services for their nail condition and understands the need for additional periodic treatments to maintain effectiveness in symptomatic relief - 49660 Progress Notes * BARBERBrendon ALVARADOpriscillaDOB: [birth year] (69 yo M)Acc No.[id number]:06/09/2024 Progress Notes Patient:?Roberto Carlos GAMBINO Provider:?Sesar Miller DPM :1955???Age:68 Y???Sex:Male Ramin e:06/09/2024 Address:[address] [place] [address], [place] Pcp:Christopher Overton Subjective: * Chief Complaints: * ???Foot painPainful nail(s) aggravated by shoes causing difficulty standing/walking * HPI: ???Foot Pain:?Nature:?aching, pulling, tenderness, throbbing, weakness.?Location:?LEFT.?Duration:?9 months.?Onset:?gradual, walking.?Course:?worse.?Aggravated:?any pressure, standing, walking.?Treatments:?rest/alter normal daily activity, ice, change in shoes.?Painful Nails:?Pt States Last PCP Visit:?Date:?09/06/2023 * ROS:?General/Constitutional:?Nausea?denies.?Vomiting?denies.?Hunger Thirst?denies.?Loss appetite?denies.?Chills?denies.?Fatigue?denies.?Fever?denies.?Night Sweats?denies.?Unexplained weight loss?denies.?Unexplained weight gain?denies.?HEENTM:?Dentures?denies.?Dizziness?denies.?Glasses/contacts?admits.?Retinopathy?de nies.?Blurred/double vision?denies.?TMJ?denies.?Discharge/drainage?denies.?Implants?denies.?Sore throat?denies.?Dental implants?denies.?Hard of hearing ?denies.?Difficulty chewing/swallowing/speaking?denies.?Nose bleeds?denies.?Sore mouth?denies.?Respiratory:?On Oxygen?denies.?Pneumonia/pleurisy?denies.?Bronchitis?denies.?Emphysema?denies.?C oughing?denies.?Cough blood?denies.?Shortness of breath?denies.?Wheezing?denies.?Cardiovascular:?Pacemaker?denies.?MVP?denies.?WPW?denies.?CHF?denies.?Heart attack?denies.?Septal defect?denies.?Rapid beat?denies.?Chest pain ?denies.?Atrial Fib.?denies.?Murmur/Palpitations?denies.?Gastrointestinal:?Hemorrhoids?denies.?Stomach/Abdominal pain?denies.?Dark blood stool?denies.?Irritable bowel ?denies.?Constipation?denies.?Diarrhea?denies.?Hematology:?Swelling?denies.?Clots?denies.?Varicose Veins?denies.?Bruising?denies.?Bleeding problem?denies.?Genitourinary:?Blood urine?denies.?Frequent/Painfu/urination/bladder control?denies.?Kidney stones?denies.?Infection (UTI)?denies.?Nephropathy?denies.?sex trans dis (STD)?denies.?Prostate?denies.?Musculoskeletal:?Hammertoes?denies.?Bunions?denies.?Back Pain?denies.?Muscle Cramps/ Resting?denies.?Muscle cramps / walking?denies.?Generalized aches and pains?denies.?Weakness?denies.?Integ.:?Hoff?denies.?Scars?denies.?Corns/calluses?admits.?Ingrown nails?admits.?Painful nails?admits.?Open Sores?denies.?Rashes?denies.?Neurologic:?Difficulty sleeping?denies.?Brain disorder?denies.?Numbness?denies.?Balance trouble?denies.?Confusion?denies.?Fainting/blackouts?denies.?Tingling?denies.?Tr emors?denies.? * Medical History:? * Surgical History:?shoulder s urgery - Drained 2000 * Hospitalization/Major Diagno stic Procedure:?Denies Past Hospitalization * Family History:?Mother: dece ased, diagnosed with Other malignant neoplasm of unspecified site, Diabetic - NIDDM.?Father: , diagnosed with Unspecified cerebral artery occlusion with cerebral infarction, Unspecified essential hypertension, Unspecified heart disease.? * Social History:?Tobacco Use:?Tobacco use other than smoking?Are you an other tobacco user??No ?Tobacco Control (Standard)?Tobacco use:?Nonsmoker ?Additional Findings: Tobacco non-user?Current nonsmoker ???Drugs/Alcohol:?Drugs?Have you used drugs other than those for medical reasons in the past 12 months??No ???Miscellaneous:?Caffeine: yes, frequency:. ?Marital status: Single. ???Drug/Alcohol:?AUDIT-C (Standard)?Did you have a drink containing alcohol in the past year??Yes ?How often did you have six or more drinks on one occasion in the past year??Declined to specify (0 point) ?How many drinks did you have on a typical day when you were drinking in the past year??Declined to specify (0 point) ?How often did you have a drink containing alcohol in the past year??Declined to specify (0 point) ?Points?0 ?Interpretation?Negative * Medications:?TakingFenofibra te 134 MG Capsule 1 capsule with a meal Orally Once a day Atorvastatin Calcium 20 MG Tablet 1 tablet Orally Once a day Allopurinol 100 MG Tablet 1 tablet Orally Once a day hydroCHLOROthiazide 25 MG Tablet 1 tablet in the morning Orally Once a day amLODIPine Besylate 2.5 MG Tablet 1 tablet Orally Once a day Meloxicam 15 MG Tablet 1 tablet Orally Once a day Lisinopril 30 MG Tablet 1 tablet Orally Once a day Medication List reviewed and reconciled with the patientTaking Fenofibrate 134 MG Capsule 1 capsule with a meal Orally Once a day Taking Atorvastatin Calcium 20 MG Tablet 1 tablet Orally Once a day Taking Allopurinol 100 MG Tablet 1 tablet Orally Once a day Taking hydroCHLOROthiazide 25 MG Tablet 1 tablet in the morning Orally Once a day Taking amLODIPine Besylate 2.5 MG Tablet 1 tablet Orally Once a day Taking Meloxicam 15 MG Tablet 1 tablet Orally Once a day Taking Lisinopril 30 MG Tablet 1 tablet Orally Once a day Medication List reviewed and reconciled with the patient * Allergies:?N.K.D.A.yes[Aller gies Verified] Objective: * Vitals:?Ht:5ft 11 inch, Wt:2 50, BMI:34.86, Shoe size:12 W, BP:130/70mm Hg, Ht- cm: 180.34 cm, Wt-k.4 kg. * Examination: ???Nails: ?NAILS are:?Elongated, overgrown, dystrophic, lytic, greater than 3mm thick, discolored and friable with crumbly malodorous subungual debris, with pain on palpation, TA, T1, T2, T3, T4, T5, T6, T7, T8, T9.?Orthopedic: ?MUSCLE STRENGTH:?5/5 all groups in a symmetrical fashion , B/L.?FOOT MORPHOLOGY:?Pes Planus structure.?TENDONITIS:? Pain on palpation, inflammation, and fusiform swelling to,Posterior Tibial Tendon,LEFT,(+) attenuation.?FOOTWEAR:?shoe gear properties exacerbate patients foot/toe deformity.?X-Rays - IMAGING REPORT: ?Clinical Indication(s):? Evaluate for Fracture,Evaluate Biomechanical Deformity.?Views:?3 views of Foot, LEFT, AP, LAT, LO??Taken by trained?Podiatric Validation Software Facilitator (?E.F.).?Findings:?normal bone and soft tissue density consistent for patients age and sex.?Foot structure:?reveals excess pronation with, anterior break in cyme line, increased talar declination, decreased calcaneal inclination.?Fracture:?Negative fractures identified.?Dermatologic: ?SKIN FINDINGS:?Skin exam reveals normal texture, elasticity, and turgor. There are no masses. The interspaces are clear.?Vascular: ?DP PULSES (B):?2/4, B/L.?PT PULSES (B):?1/4, B/L.?CAPILLARY FILL TIME:?immediate, all digits, B/L.?TROPHIC CONDITION-TEXTURE/ELASTICITY/TURGOR/HAIR GROWTH (B):?normal, B/L.?TEMPERTURE GRADIENT (C):?warm to cool, proximal to distal, B/L.?PIGMENTATION:?normal, B/L.?EDEMA (C):?absent, B/L.?Neurological: ?SENSORY:?Neurological exam reveals intact sensorium, pain sensation normal, vibration sensation intact, pinprick sensation is normal in the lower extremities, Pt denies, anesthesia, burning, paresthesia, tingling, B/L.?TINEL'S COMPRESSION:?Negative tarsal tunnel, alexys pedis, and medial calcaneal nerves.?DEEP TENDON REFLEXES:?Achilles, 1/4, B/L.?General Examination: ?GENERAL APPEARANCE:?Reveals a pleasant, alert, well-nourished, well- developed, well hydrated individual, who demonstrates proper attention to hygiene/body habitus, and is in no acute distress, Pt serves as own?historian for office visit today.?ORIENTED:?person, place, and time.? Assessment: * Assessment: 1.?Pain in left foot - M79.6 72 (Primary)???2.?Hypertrophy of bone, left ankle and foot - M89.372???3.?Flat foot [pes planus] (acquired), left foot - M21.42???4.?Posterior tibial tendinitis of left lower extremity - M76.822???Specify :Acute problem, Complicated w/ Multiple Tx Options(4),Dx New problem, Prognosis Uncertain (4)???5.?Pain in right toe(s) - M79.674???6.?Onychomycosis - B35.1???7.?Pain in left toe(s) - M79.675??? Plan: * Treatment: 2.?Onychomycosis?Procedure: [id number] NAIL, 6 OR MORE * Procedures:?Debride Nail 6-10:?Nail debridement?Due to the clinical pathology outlined in the exam findings, performance of this nail treatment is medically necessary as its management by an unskilled/untrained nonprofessional would put this patients foot and overall health at risk. Therefore, debridement to affected nail(s), as described in exam (?TA, T1, T2, T3, T4, T5, T6, T7, T8, T9), was performed exclusively by the physician of record to reduce/remove overall nail length, girth, thickness, subungual debris, and necrotic tissue, by manual and/or electrical means through the use of a nail nipper and/or dremel-type eyeglass lens grinder, to a more viable healthy nail plate or bed tissue 6- 10 nails in total. Silver nitrate was used for any petechial bleeding as necessary. Definitive antifungal treatment options, both pharmaceutical and surgical, have been reviewed and discussed with the patient. The patient solely prefers the use of intermittent/as needed professional debridement services for their nail condition and understands the need for additional periodic treatments to maintain effectiveness in symptomatic relief - 31531.? * Procedure Codes:?41478 X-RAY EXAM OF LEFT FOOT 3V, Modifiers: 26 , [id number] DEBRIDE NAIL, 6 OR MORE * Preventive Medicine:? ??Counseling:?Discussion:?-04: Office or other outpatient visit for the evaluation and management of a new patient, which required a medically appropriate history and/or examination and MODERATE level of DECISION MAKING for: 1 OR MORE CHRONIC PROBLEM(S) THATS WORSENING, 2 STABLE CHRONIC PROBLEMS, A NEWLY DIAGNOSED PROBLEM WITH UNCERTAIN PROGNOSIS, AN ACUTE COMPLICATED INJURY WITH MULTIPLE TREATMENT OPTIONS, OR AN ACUTE PROBLEM WITH ACCOMPANYING SYSTEMIC SYMPTOMS, THAT POSE(S) A MODERATE RISK OF MORBIDITY. THIS CONDITION MAY ALSO INCLUDE RX DRUG MANAGEMENT, OR A DECISON FOR MINOR SURGERY. The visit on the day of the encounter encompassed interpreting the data and educating the patient as to the nature of their condition, treatment options available according to their individual PMH, meds, allergies, and overall health/living conditions, as well as any potential risks or complications that may occur from a failure to adhere to, and participate in, the recommended course of therapy. The discussion included a complete verbal, and/or written explanation of the examination results, any x-rays taken, the proposed diagnosis, and outline of the treatment plan. A schedule for future care needs was also explained. The patient verbalized an understanding of the instructions at this time and agreed to be an active participant in their treatment. If the patient should think of any questions or concerns after the visit, I have encouraged the patient to call the office.?Myositis/Tendonitis:?TENDONITIS: I explained to the patient the possible etiologies of their Tendonitis, including foot type/shoe gear/activity level/exercise routine and the risks/benefits of the different treatment options for their pain including: No treatment at all, Rest, Ice, Oral Prednisone, NSAIDs(only if well tolerated after meals), New/supportive Shoe gear, Strappings and Tapings, Stretching exercises, Deep Tissue Massage, Heel cups/cushions, Arch support/shoe inserts, Custom orthoses, Foot/Ankle AFO Bracing, Cast boot with crutches/cane/or walker for assisted ambulation, Topical analgesics including Aspercream/Voltaren gel, Physical Therapy, EPAT/ESWT, and Interfil injection therapy. Tendon surgical procedures including reefing and/or transfers were also detailed should either one become necessary through failure of conservative treatment. The advantages and disadvantages of each option were discussed and the patients questions re: shoe gear, the difference between custom vs prefabricated inserts, activity level, PO vs Topical medications (and their respective potential complications/drug interactions/side effects), consistency in home treatment regimens for optimal success, as well as the potential benefits and possible complications of reconstructive surgery (including, but not limited to failure, prolonged/delayed healing, infection, weakness, persistent pain) were answered to their verbally confirmed satisfaction.?Orthotics:?I explained to the patient the benefits of OT use. I explained that orthoses are medically necessary to decrease the foot pain through proper mechanical control, support of their foot, Prefabricated orthoses ( Comfort Plus ( F ), ), were dispensed. The inserts were comfortably fit to the patients feet in both weight-bearing and non-weight bearing attitudes. The patient was instructed to increase the amount of time they were wearing the inserts, starting with one hour the first day and gradually increasing the amount of time worn until they are using them signal timer and in all activities. They were asked to call the office if any signs of irritation were noted such as redness, blistering or callous formation. Instuctions were given for their usage and proper break-in/wear/care. Pt expressed comfort with and tolerance to inserts dispensed.?P.R.I.C.E.:?The patient was counseled on the use of P.R.I.C.E. and NSAIDS (if well tolerated) to aid in the recovery from their painful condition, Recommended Topical analgesics including Aspercream/Biofreeze/Voltaren gel as directed.?Shoe Gear Counseling:?The patient and I reviewed the types of shoes they should be wearing. My recommendation included obtaining a well-fitted shoe with a good supportive, non-foldable nor twistable sole, plenty of toe/room for the forefoot, and proper arch support. Based on todays examination, I recommended the patient look for new shoes, by having their feet professionally measured. We discussed that generally the best time of the day for a shoe fitting is the afternoon. Different shoes types and brands to best match the patients occupation and vocation were discussed. Specific brand selection will be up to the patient, their individual foot condition/deformities, and fit. The patient and I reviewed the standard new shoe break in period by wearing them for a few hours a day while checking for redness or sores as wear time is increased. The patient verbally confirmed to understanding the information discussed.? ??Screening/Special Tests:?Fall Risk?Screening:?No falls in the past year ?FALLS: Screening for Future Fall Risk?Have you had any falls with injury in the past year??No * Follow Up:?prn * Images: * Sign off status: Completed true * Provider:?Sesar Miller DPM Date:?2023 Generated for Deniz freire/Chitra/eTransmitting on:?10/22/2024 09:52 AM EDT History and Physical Notes * HPI (History of Present Illness) Category Sub-Category Detail Notes Category Not es Painful Nails Pt States Last PCP Visit: Date:: 09/06/2023 Foot Pain Nature: aching, pulling, tenderness, throbbing, weakness Location: LEFT Duration: 9 months Onset: gradual, walking Course: worse Aggravated: any pressure, standi ng, walking Treatments: rest/alter normal da smiley activity, ice, change in shoes Examination Category Sub-Category Detail Notes Category Not es Neurological SENSORY: Neurological exa m reveals intact sensorium, pain sensation normal, vibration sensation intact, pinprick sensation is normal in the lower extremities, Pt denies, anesthesia, burning, paresthesia, tingling, B/L TINEL'S COMPRESSION: Negative tarsal suze breanna, alexys pedis, and medial calcaneal nerves DEEP TENDON REFLEXES: Achilles, 1/4, B/L Dermatologic SKIN FINDINGS: Skin exam reveal s normal texture, elasticity, and turgor. There are no masses. The interspaces are clear Orthopedic FOOT MORPHOLOGY: Pes Planus structure FOOTWEAR EVALUATION: shoe gear propertie s exacerbate patients foot/toe deformity TENDONITIS: Pain on palpation, i nflammation, and fusiform swelling to,Posterior Tibial Tendon,LEFT,(+) attenuation MUSCLE STRENGTH: 5/5 all groups in a symmetrical fashion , B/L General Examination GENERAL APPEARANCE: Reveals a pleasant, alert, well- nourished, well-developed, well hydrated individual, who demonstrates proper attention to hygiene/body habitus, and is in no acute distress, Pt serves as own historian for office visit today ORIENTED: person, place, and t manny Vascular DP PULSES (B): 2/4, B/L PT PULSES (B): 1/4, B/L CAPILLARY FILL TIME: immediate, all digi ts, B/L TEMPERTURE GRADIENT (C): warm to cool, p roximal to distal, B/L TROPHIC CONDITION-TEXTURE/ELASTICITY/TURGOR/HAIR GROWTH (B): normal, B/L EDEMA (C): absent, B/L PIGMENTATION: normal, B/L Nails NAILS are: Elongated, overg rown, dystrophic, lytic, greater than 3mm thick, discolored and friable with crumbly malodorous subungual debris, with pain on palpation, TA, T1, T2, T3, T4, T5, T6, T7, T8, T9 X-Rays - IMAGING REPORT Findings: normal b one and soft tissue density consistent for patients age and sex Fracture: Negative fractures i dentified Foot structure: reveals excess prona tion with, anterior break in cyme line, increased talar declination, decreased calcaneal inclination Views: 3 views of Foot, LEF T, AP, LAT, LO Taken by trained Podiatric Validation Software Facilitator ( E.F.) Clinical Indication(s): Evaluate for Fra cture,Evaluate Biomechanical Deformity
--- OUTSIDE RECORDS SUMMARY | 2024-10-22 09:53 | XMS_ITS ---
Author Organization [facility] Address [address] [place] [address] Care Team Providers Care Cardiology Consultant Name Role Phone Nuvia MORRIS, Stephanie Velasquez Primary Care Provider Un available Sesar Miller Unavailable [phone] REASON FOR VISIT comfort + met pads F Encounters Encounter Location Date Provider Diagnosis [facility] [address] [place] [address] 06/09/2024 Sesar Miller Plan Of Treatment No Information Progress Notes * Roberto Carlos GAMBINODOB: [birth year] (68 yo M)Acc No.[id number]:06/09/2024 Patient:?Roberto Carlos GAMBINO :1955???Age:68 Y???Sex:Male Address:[address] [place], [place] [address] * true * Date:? Generated for Printi ng/Faxing/eTransmitting on:?10/22/2024 09:53 AM EDT
--- OUTSIDE RECORDS SUMMARY | 2024-10-22 09:53 | XMS_ITS | Clinical Summary ---
Author Organization [facility] Address [address] [place] [address] Phone Care Team Providers Care Children'S Court Magistrate Name Role Phone Carmita Pedersen MD Primary Care Provider +1- [phone] Allergies No known active allergies Medications allopurinol (ZYLOPRIM) 100 MG tablet Take 100 mg by mouth 1 (one) time each day Active atorvastatin (LIPITOR) 20 MG tablet Take 20 mg by mouth 1 (one) time each day Active B-COMPLEX-C PO Take 1 tablet by mouth 1 (one) time each day Active Cholecalciferol 50 MCG (2000 UT) capsule Take 50 mcg by mouth 1 (one) time each day Active fenofibrate micronized (LOFIBRA) 134 MG capsule Take 134 mg by mouth 1 (one) time each day before breakfast Active hydroCHLOROthia zide 25 MG tablet Take 25 mg by mouth 1 (one) time each day Active lisinopril (PRINIVIL,ZESTR IL) 30 MG tablet Take 30 mg by mouth 1 (one) time each day Active [place]-3 Fatty Acids 1000 MG capsule delayed-release Take 1 tablet by mouth 1 (one) time each day Active Turmeric (QC TUMERIC COMPLEX PO) Take 1 tablet by mouth 1 (one) time each day Active Zinc 50 MG capsule Take 1 tablet by mouth 1 (one) time each day Active amLODIPine (NORVASC) 2.5 MG tablet TAKE 1 TABLET DAILY 90 tablet 3 4 Active meloxicam (MOBIC) 15 MG tablet Take 15 mg by mouth 1 (one) time each day if needed 4 Active Active Problems Problem Noted Date Diagnosed Date Cyst of kidney 06/07/2022 Gout, not otherwise specified 04/08/2022 Stage 3a chronic kidney disease 02/04/2022 Hypertension 02/04/2022 Dyslipidemia 02/04/2022 Family History Medical History Relation Comments Hypertension Father Stroke Father COPD Mother Relation Status Comments Father Mother Social History Tobacco Use Types Packs/Day Years Used Date Smoking Tobacco: Never Smokeless Tobacco: Never Tobacco Cessation:Counseling Given: Not Answered Alcohol Use Standard Drinks/Week Comments Yes 0 (1 standard drink = 0.6 oz pur e alcohol) Sex and Gender Information Value Date Recorded Sex Assigned at Not on file Legal Sex Male 9:20 AM EDT Gender Identity Not on file Sexual Orientation Not on file Last Filed Vital Signs Vital Sign Reading Time Taken Comments Blood Pressure 163/79 05/11/2024 9:50 AM EST Pulse 60 05/11/2024 9:50 AM EST Temperature - - Respiratory Rate - - Oxygen Saturation 98% 05/11/2024 9:50 AM EST Inhaled Oxygen Concentration - - Weight 115 kg (253 lb 9.6 oz) 05/11/2024 9:50 AM EST Height 180.3 cm (5' 11 ) 05/11/2024 9:50 AM EST Body Mass Index 35.37 05/11/2024 9:50 AM EST Plan of Treatment Health Maintenance Due Date Last Done Comments Pneumococcal Vaccine: 50+ Ye ars (1 of 2 - PCV) 1973 Colorectal Cancer Screening: Annual FOBT 2003 Colorectal Cancer Screening: Colonoscopy 2003 Colorectal Cancer Screening: Sigmoidoscopy 2003 Influenza Vaccine (Season Ended) 2025 Hepatitis B Vaccine Aged Out No longe r eligible based on patient's age to complete this topic Insurance [facility] Shared Services ([id number]) [place] [id number] Magistrate Relationship Specialty Start Date End Date Carmita Pedersen MD [facility] [place] [id number] PCP - General Internal Medicine 12/06/21
--- OUTSIDE RECORDS SUMMARY | 2024-10-22 09:54 | XMS_ITS ---
Author Organization [facility] Address [address] [place] [address] Care Team Providers Care Analysis Analyst Name Role Phone Nuvia MORRIS, Stephanie Velasquez Primary Care Provider Un available Sesar Miller [phone] MAN Encounters Encounter Location Date Provider Diagnosis [facility] [address] [place] [address] 02/13/2024 Sesar Miller Plan Of Treatment No Information Progress Notes * Roberto Carlos GAMBINODOB: [birth year] (68 yo M)Acc No.[id number]:02/13/2024 Patient:?Roberto Carlos Gambino :1955???Age:68 Y???Sex:Male Address:[address], [place] [address] * true * Date:? Generated for Printi ng/Faxing/eTransmitting on:?10/22/2024 09:53 AM EDT
== END 2024-10-22 09:57 | disposition home or self-care (01) ==
PROVIDERS: PCP Internal Medicine; Visit Provider Orthopaedic Surgery
DX: M17.0 Bilateral primary osteoarthritis of knee (principal)
CPT/HCPCS: 20610; 99213

== ENCOUNTER → 2024-10-22 09:09 | Outpatient (BNVA) | payer OTHER, SELFPAY | PROVIDERS: PCP Internal Medicine; Visit Provider Orthopaedic Surgery | DX: M17.0 Bilateral primary osteoarthritis of knee (principal) | CPT/HCPCS: 20610; 99212; J2003; J7318 ==

== ENCOUNTER 2025-01-27 09:21 | Outpatient (AMB) | payer MEDICARE, SELFPAY ==
[2025-01-27 09:23] VITALS: BMI 37.2
--- NOTE | 2025-01-27 09:23 | MHC.OFFVIS ---
Vital Signs 01/27/25 09:23 Height 5 ft 10 in Weight 259 lb BMI 37.2 Intake Visit Reasons: Inj-B/L knee cortisone injection Intake Note: Roberto Carlos is a 69 year old male who presents with complaints of bilateral knee pains. He describes his pains as sharp in nature. He has tried physical therapy exercises which aggravated his pain. He has also tried Tylenol and anti-inflammatory medicines which gave him minimal relief. He wishes to hold off on surgery if at all possible. Allergies No Known Allergies Allergy (Verified 10/22/24 09:21) [facility] Medical History CKD stage 3a, GFR 45-59 ml/min Right knee pain Hypertensive nephrosclerosis Vitamin D deficiency High serum creatinine Osteoarthritis COVID-19 virus infection Obesity Vitamin D deficiency Septic arthritis Gout Essential hypertension Dyslipidemia Surgical History History of colonoscopy History of septic arthritis Family History Father HTN (hypertension) Stroke Mother COPD (chronic obstructive pulmonary disease) Mental health disorder Maternal Uncle Lung cancer Non-insulin dependent diabetes mellitus Substance use disorder Maternal Aunt Substance use disorder Paternal Aunt Substance use disorder Paternal Uncle Substance use disorder Social History Housing: House Alcohol intake: current Patient Tobacco Use Status: Never used Tobacco e-Cigarette/Vaping Use: Never Used service: No Current occupational status: retired Cognitive needs: No Hearing needs: No Vision needs: No Physical Exam Vital Signs: BMI result Body Mass Index 37.2 Const Other: Well-nourished well-developed very friendly male awake alert and oriented x3 in no acute distress Extrem Other: Bilateral lower extremity examination shows good capillary refill, no skin lesions noted, normal sensation light touch Bilateral knee examination shows minimal effusions, palpable crepitus with range of motion, pain with range of motion, no instability Office Procedures AMB Joint Injection/Aspiration Joint Injection/Aspiration Primary Site: left knee Prep: site was prepped using aseptic technique Injected: 40 mg of, DepoMedrol and 1% plain lidocaine Procedure: The patient tolerated the procedure well Coding 08734 - Large joint Procedure code (CPT) selection complete AMB Joint Injection/Aspiration Joint Injection/Aspiration Primary Site: right knee Prep: site was prepped using aseptic technique Injected: 40 mg of, DepoMedrol and 1% plain lidocaine Procedure: The patient tolerated the procedure well Coding - Large joint Procedure code (CPT) selection complete Results Reviewed Results Reviewed: X-rays of the patient's bilateral knees taken previously show joint space narrowing, subchondral sclerosis, no acute bony abnormalities Assessment & Plan Assessment & Plan (1) Osteoarthritis of left knee: Code(s): M17.12 - Unilateral primary osteoarthritis, left knee Category: Medical (2) Osteoarthritis of right knee: Code(s): M17.11 - Unilateral primary osteoarthritis, right knee Category: Medical Plan Roberto Carlos presents with bilateral knee pains due to osteoarthritis. The risks and benefits of bilateral knee cortisone injections were discussed at length with the patient. The patient wishes to proceed. He tolerated the injections well. Continue with his home exercise program. He did inquire about possible nerve stimulation procedures. I will refer him to the pain management clinic here at [facility] for further information. If he does not get lasting relief from the cortisone injections I will see if his insurance company will cover a Durolane viscosupplementation injection for both of his knees. I will see him back once the injections are available. Feel free to call me at any time should questions regarding his orthopedic management arise. I spent 21 minutes in reviewing the patient's records and imaging studies, seeing the patient and documenting in the medical record. Orders: Orders AMB Joint Injection/Aspiration Today M17.12 - Unilateral primary osteoarthritis, left knee AMB Joint Injection/Aspiration Today M17.11 - Unilateral primary osteoarthritis, right knee Referrals Pain Management Referral M17.11 - Unilateral primary osteoarthritis, right knee, M17.12 - Unilateral primary osteoarthritis, left knee Coding Level of Care Code Est Pt Level 3 (45753) Complex EM visit Add On G2211 Diagnoses Osteoarthritis of left knee M17.12 Osteoarthritis of right knee M17.11 CPT Codes Coding - Large joint: 31520 - Large joint ([id number]) Coding - 20796 Large joint: 93641 - Large joint ([id number])
--- OUTSIDE RECORDS SUMMARY | 2025-01-27 09:42 | XMS_ITS | Clinical Summary ---
Author Organization [facility] Address [address] [place] [address] Phone Care Team Providers Care Project Finance Analyst Name Role Phone Carmita Pedersen MD Primary Care Provider +1- [phone] Allergies No known active allergies Medications allopurinol [...] mouth 1 (one) time each day Active [place]-3 Fatty Acids 1000 MG capsule delayed-release Take [...] Colorectal Cancer Screening: Sigmoidoscopy 2003 Influenza Vaccine (#1) 2025 Hepatitis B Vaccine Aged Out No longe r eligible based on patient's age to complete this topic Insurance [facility] Shared Services ([id number]) [place] [id number] Care Teams Project Finance Analyst Relationship Specialty Start Date End Date Carmita Pedersen MD [facility] [place] [id number] PCP - General Internal Medicine 12/06/21
--- OUTSIDE RECORDS SUMMARY | 2025-01-27 09:42 | XMS_ITS | Patient Health Record ---
Author Organization [facility] Address [address] [place] [address] Care Team Providers Care Auto Winder Name Role Phone Nuvia MORRIS, Stephanie Primary Care Provider Wallace Morris Jr Unavailable Reason For Referral No Information Medications Medication SIG (Take, Route, Frequency, Duration) Notes Start Date End Date Status Atorvastatin Calcium Active Multi Vitamin/Minerals Active Fish Oil Active Colyte with Flavor Packs 240 GM As direc chris Orally Over the specified time. for 1 day(s) 07/25/2016 Active Fenofibrate Active hydroCHLOROthiazide Active Allopurinol Active Lisinopril Active Problems Problem Type SNOMED Code ICD Code Onset Dates Problem Status W/U Status Risk Notes Problem 923656969 Colon cancer screening (Z12.11) Active confirmed Problem 112756755 Long-term curren t use of high risk medication other than anticoagulant (Z79.899) Active confirmed Plan Of Treatment Future Test Test Name Order Date COLONOSCOPY 07/25/2016 Insurance Providers Payer Name Payer Address Payer Phone Subscriber Number Group Number Insured Name Patient Relationship to Insured Coverage Start Date Coverage End Date [employer] [address] [place] [phone] [id number] JAZZ GAMBINO Self - patient is the insured Medical (General) History Medical History History ICD Code colonoscopy 05-08-2006 elevated cholesterol gout hypertension Surgical History Surgery Date(Month/Year) shoulder infection requiring surgery on the right
--- OUTSIDE RECORDS SUMMARY | 2025-01-27 09:42 | XMS_ITS | Patient Health Record ---
[facility] Address [address] [place] [address] Care Team Providers Care Hvac Estimator Name Role Phone Nuvia MORRIS, Stephanie Velasquez Primary Care Provider Un available Sesar Miller Unavailable [phone] Allergies No Known Allergies Reason For Referral [...] Status W/U Status Risk Notes Problem Onychomycosis (776246825) Onychomycosis (B35.1) Active confirmed Problem Essential hypertension (I10) Active confirmed Vital Signs Blood pressure diastolic 70 mm Hg 06/09/2024 Height 5ft 11 inch in 06/09/2024 Blood pressure systolic 130 mm Hg 06/09/2024 Weight 250 lbs 06/09/2024 BMI 34.86 kg/m2 06/09/2024 Procedures Procedure Date Ordered Date Performed Result Body Sit e 17994-UMSOTGW NAIL, 6 OR MORE 06/09/2024 N/A Encounters Encounter [facility] Date [facility] [address] [facility]/09/[facility]24 Sesar Miller Pain in left foot M79.672 ; Hypertrophy of bone, 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 ; Flat foot [pes planus] (acquired), left foot M21.42 ; Posterior tibial tendinitis of left lower extremity M76.822 ; Pain in right toe(s) M79.674 ; Onychomycosis B35.1 and Pain in left toe(s) M79.[address] [address] 02/13/2024 Sesar Miller [address] [address] 06/09/2024 Sesar Miller Assessments Encounter Date Diagnosis (ICD Code) [...] X ray : Foot, left 3V 06/09/2024 [id number] NAIL, 6 OR MORE 06/09/2024 Insurance Providers Payer Name Payer Address Payer Phone Subscriber Number Group Number Insured Name Patient Relationship to Insured Coverage Start Date Coverage End Date [facility] [address] [address] [place] [address] [id number] U Roberto Carlos Richardson Self - patient is the insured Medical (General) History Medical History History ICD Code Arthritis Back,Hip,and Knee pain CAD (Cholesterol) Glaucoma Gout High Blood Pressure Measles Chicken pox Surgical History Surgery Date(Month/Year) shoulder surgery - Drained 2000
== END 2025-01-27 09:48 | disposition home or self-care (01) ==
LOC: HO.HOS 09:21
PROVIDERS: PCP Internal Medicine; Visit Provider Orthopaedic Surgery
DX: M17.0 Bilateral primary osteoarthritis of knee (principal)
CPT/HCPCS: 20610; 99213

== ENCOUNTER → 2025-01-27 09:21 | Outpatient (BNVA) | payer MEDICARE, SELFPAY | PROVIDERS: PCP Internal Medicine; Visit Provider Orthopaedic Surgery | DX: M25.562 Pain in left knee (principal); M25.561 Pain in right knee; M17.0 Bilateral primary osteoarthritis of knee | CPT/HCPCS: 20610; 99212; J1010; J2003 ==

== ENCOUNTER 2025-01-28 09:15 | Outpatient (REF) | payer MEDICARE, SELFPAY ==
--- OUTSIDE RECORDS SUMMARY | 2025-01-28 09:39 | XMS_ITS | Clinical Summary ---
Author Organization [facility] Address [address] [place] [address] Phone Care Team Providers Care Carbonizer Tester Name Role Phone Carmita Pedersen MD Primary Care Provider +1- [phone] Allergies No known active allergies Medications allopurinol [...] mouth 1 (one) time each day Active [place]-3 Fatty Acids 1000 MG capsule delayed-release Take [...] patient's age to complete this topic Insurance [facility] Shared Services ([id number]) [place] [id number] Care Teams Carbonizer Tester Relationship Specialty Start Date End Date Carmita Pedersen MD [facility] [place] [id number] PCP - General Internal Medicine 12/06/21
--- OUTSIDE RECORDS SUMMARY | 2025-01-28 09:39 | XMS_ITS | Patient Health Record ---
[facility] Address [address] [address] Care Team Providers Care Senior Nuclear Medicine Technologist Name Role Phone Nuvia MORRIS, Stephanie Velasquez Primary Care Provider Un available Sesar Miller Unavailable [phone] Allergies No Known Allergies Reason For Referral [...] Status W/U Status Risk Notes Problem Onychomycosis (452655560) Onychomycosis (B35.1) Active confirmed Problem Essential hypertension (I10) Active confirmed Vital Signs Blood pressure diastolic 70 mm Hg 06/09/2024 Height 5ft 11 inch in 06/09/2024 Blood pressure systolic 130 mm Hg 06/09/2024 Weight 250 lbs 06/09/2024 BMI 34.86 kg/m2 06/09/2024 Procedures Procedure Date Ordered Date Performed Result Body Sit e 14920-JTQRWBO NAIL, 6 OR MORE 06/09/2024 N/A Encounters Encounter [facility] Date [facility] [address] 06/09/2024 Sesar Miller Pain in left foot M79.672 ; Hypertrophy of bone, 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 ; Flat foot [pes planus] (acquired), left foot M21.42 ; Posterior tibial tendinitis of left lower extremity M76.822 ; Pain in right toe(s) M79.674 ; Onychomycosis B35.1 and Pain in left toe(s) M79.[address] [address] 02/13/2024 Sesar Miller [address] [address] 06/09/2024 Sesar Miller Assessments Encounter Date Diagnosis [...] X ray : Foot, left 3V 06/09/2024 42825-[id number] NAIL, 6 OR MORE 06/09/2024 Insurance Providers Payer Name Payer Address Payer Phone Subscriber Number Group Number Insured Name Patient Relationship to Insured Coverage Start Date Coverage End Date [facility] [address] [address] [place] [address] [id number] U Roberto Carlos Richardson Self - patient is the insured Medical (General) History Medical History History ICD Code Arthritis Back,Hip,and Knee pain CAD (Cholesterol) Glaucoma Gout High Blood Pressure Measles Chicken pox Surgical History Surgery Date(Month/Year) shoulder surgery - Drained 2000
--- OUTSIDE RECORDS SUMMARY | 2025-01-28 09:39 | XMS_ITS | Patient Health Record ---
Author Organization [facility] Address [address] [place] [address] Care Team Providers Care Photographic Supervisor Name Role Phone Nuvia MORRIS, Stephanie Primary [...] Problem Status W/U Status Risk Notes Problem 226895696 Colon cancer screening (Z12.11) Active confirmed Problem 137884159 Long-term curren t use of high risk medication other than anticoagulant (Z79.899) Active confirmed Plan Of Treatment Future Test Test Name Order Date COLONOSCOPY 07/25/2016 Insurance Providers Payer Name Payer Address Payer Phone Subscriber Number Group Number Insured Name Patient Relationship to Insured Coverage Start Date Coverage End Date [employer] [address] [place] [phone] [id number] JAZZ GAMBINO Self - patient is the insured Medical (General) History Medical History History ICD Code colonoscopy 05-08-2006 elevated cholesterol gout hypertension Surgical History Surgery Date(Month/Year) shoulder infection requiring surgery on the right
[2025-01-28 11:05] LABS: Alanine Aminotransferase 56 U/L (0-40); Anion Gap 14 (12-20); Aspartate Amino Transferase 42 U/L (5-37); Blood Urea Nitrogen 22 mg/dL (9-16); Calcium 9.4 mg/dL (8.4-10.2); Carbon Dioxide 26 mmol/L (22-29); Chloride 109 mmol/L (96-108); Cholesterol 140 mg/dL (<200); Estimated Glomerular Filt Rate > 60; HDL Cholesterol 39 mg/dL (>40); Potassium 3.6 mmol/L (3.3-5.1); Sodium 145 mmol/L (135-145); Triglycerides 76 mg/dL (<150); Uric Acid 7.7 mg/dL (3.4-7.0)
[2025-01-28 11:26] LABS: PSA,Total (Free>4and<10) 0.56 ng/mL (0.00-4.00)
== END 2025-01-28 09:16 | disposition home or self-care (01) ==
LOC: HO.HMGCLDS 09:15
PROVIDERS: PCP Internal Medicine; Visit Provider Internal Medicine
DX: Z12.5 Encounter for screening for malignant neoplasm of prostate (principal); I12.9 Hypertensive chronic kidney disease with stage 1 through stage 4 chronic kidney disease, or unspecified chronic kidney disease; N18.9 Chronic kidney disease, unspecified; E66.812 Obesity, class 2; Z68.36 Body mass index [BMI] 36.0-36.9, adult; M10.9 Gout, unspecified; E78.5 Hyperlipidemia, unspecified
CPT/HCPCS: 36415; 80048; 80061; 84153; 84450; 84460; 84550

== ENCOUNTER 2025-03-10 12:59 | Outpatient (AMB) | payer MEDICARE, SELFPAY ==
[2025-03-10 13:04] VITALS: BP 128/74; PULSE 84; RESP 16; TEMP 37.1; O2SAT 96; BMI 36.2
--- NOTE | 2025-03-10 13:04 | AM.OFFWIN_ITS ---
Intake Vital Signs 03/10/25 13:04 Height 5 ft 10 in Weight 252 lb BMI 36.2 BP 128/74 Blood Pressure Location Lt brachial Position Sitting Respiration 16 Pulse 84 Pulse Source Pulse Oximeter Temp 98.8 F Temp Source Rectal Pulse Oximetry (%) 96 Oxygen Delivery Method Room Air Intake Visit Reasons: ep right knee very sore Patient Tobacco Use Status: Never used Tobacco Allergies No Known Allergies Allergy (Verified 10/22/24 09:21) HPI HPI Comments History of Present Illness Details History of Present Illness - The patient is a 69-year-old male pres enting with right knee pain, 2 days of acute on chronic. Denies injury 2 days ago. - The patient has a history of right kne e dislocation from a teenage right knee dislocation while playing baseball, with persistent pain worsening over time. - He tells me he has arthritis in the kn ee - Previous interventions include gel and cortisone injections, with the last cortisone injection 01/27/25 providing temporary relief. - The patient is considering knee replac ement surgery due to worsening pain. - The patient also reports left ankle so reness when standing for extended periods, likely due to arthritis. Physical Exam General: Cooperative, healthy appearing, comfortable, no acute distress and well developed Orientation: Patient oriented x3 Limitations: ambulates normally Head: Normal to inspection Ears: Hearing grossly normal bilaterally Face and sinus: Normal facial exam Eyes: Appearance normal, both eyes and all related structures Neck: Normal visual inspection, full ROM Respiratory: Normal respiratory effort and able to speak in complete sentences. Skin: No rashes or lesions noted Neuro: Patient oriented x3, gait with cane normal Back/spine: no TTP cervical, thoracic or lumbar spine Extremities: right knee with significant edema, negative patellar ballottment, no TTP anterior or posterior knee, neg anterior and posterior drawer test, some pain and laxity with varus and valgus movement, full ROM with pain, no skin changes. [facility] Medical History CKD stage 3a, GFR 45-59 ml/min Right knee pain Hypertensive nephrosclerosis Vitamin D deficiency High serum creatinine Osteoarthritis COVID-19 virus infection Obesity Vitamin D deficiency Septic arthritis Gout Essential hypertension Dyslipidemia Surgical History History of colonoscopy History of septic arthritis Family History Father HTN (hypertension) Stroke Mother COPD (chronic obstructive pulmonary disease) Mental health disorder Maternal Uncle Lung cancer Non-insulin dependent diabetes mellitus Substance use disorder Maternal Aunt Substance use disorder Paternal Aunt Substance use disorder Paternal Uncle Substance use disorder Social History Housing: House Alcohol intake: current Patient Tobacco Use Status: Never used Tobacco e-Cigarette/Vaping Use: Never Used service: No Current occupational status: retired Cognitive needs: No Hearing needs: No Vision needs: No Review of Systems Const All systems reviewed & are unremarkable except as noted in HPI and below Physical Exam Vital Signs: Last Vital Signs Temp 98.8 F 03/10/25 13:04 Pulse 84 03/10/25 13:04 Resp 16 03/10/25 13:04 BP 128/74 03/10/25 13:04 Pulse Ox 96 03/10/25 13:04 Oxygen Delivery Method Room Air 03/10/25 13:04 BMI result Body Mass Index 36.2 Assessment & Plan Assessment & Plan (1) Pain and swelling of right knee: Code(s): M25.561 - Pain in right knee; M25.461 - Effusion, right knee Plan: Assessment and Plan 1. Right knee pain - An x-ray is planned to evaluate for joint effusion. - Referral to orthopedics for potential fluid drainage and surgical evaluation is considered due to worsening pain. - If XR is normal, pt should follow up with Orthopedics to evaluate for TKR. 2. Left ankle soreness - The patient is advised to use rest, ice, compression, and elevation (RICE) for symptomatic relief, with ice recommended for inflammation. Patient was informed and verbally consented to the use of an ambient scribe for clinic note documentation during this visit. Orders: Orders XR knee RT 4V Today M25.461 - Effusion, right knee, M25.561 - Pain in right knee Coding Level of Care Code Est Pt Level 4 (67148) Diagnoses Pain and swelling of right knee M25.561; M25.461
--- OUTSIDE RECORDS SUMMARY | 2025-03-10 16:27 | XMS_ITS | Patient Health Record ---
Author Organization [facility] Address [address] [place] [address] Care Team Providers Care Promotions Executive Producer Name Role Phone Nuvia MORRIS, Stephanie Velasquez Primary Care Provider Un available Sesar Miller Unavailable [phone] Allergies No Known Allergies Reason For Referral [...] Status W/U Status Risk Notes Problem Onychomycosis (164518168) Onychomycosis (B35.1) Active confirmed Problem Essential hypertension (24080327) Essential hypertension (I10) Active confirmed Vital Signs Blood pressure diastolic 70 mm Hg 06/09/2024 Height 5ft 11 inch in 06/09/2024 Blood pressure systolic 130 mm Hg 06/09/2024 Weight 250 lbs 06/09/2024 BMI 34.86 kg/m2 06/09/2024 Procedures Procedure Date Ordered Date Performed Result Body Sit e 12060-GORZJJR NAIL, 6 OR MORE 06/09/2024 N/A Encounters Encounter Location Date Provider Diagnosis [facility] [address] [address] 06/09/2024 Sesar Miller Pain in left foot M79.672 ; Hypertrophy of bone, 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 ; Flat foot [pes planus] (acquired), left foot M21.42 ; Posterior tibial tendinitis of left lower extremity M76.822 ; Pain in right toe(s) M79.674 ; Onychomycosis B35.1 and Pain in left toe(s) M79.675 [facility] [address] [address] 06/09/2024 Sesar Miller Assessments Encounter Date Diagnosis [...] X ray : Foot, left 3V 06/09/2024 33990-CYDLBJW NAIL, 6 OR MORE 06/09/2024 Insurance Providers Payer Name Payer Address Payer Phone Subscriber Number Group Number Insured Name Patient Relationship to Insured Coverage Start Date Coverage End Date [facility] [address] [address] [place] [address] [id number] U Roberto Carlos Richardson Self - patient is the insured Medical (General) History Medical History History ICD Code Arthritis Back,Hip,and Knee pain CAD (Cholesterol) Glaucoma Gout High Blood Pressure Measles Chicken pox Surgical History Surgery Date(Month/Year) shoulder surgery - Drained 2000
--- OUTSIDE RECORDS SUMMARY | 2025-03-10 16:27 | XMS_ITS | Patient Health Record ---
Author Organization [facility] Address [address] [place] [address] Care Team Providers Care Labor Mediator Name Role Phone Nuvia MORRIS, Stephanie Primary [...] Problem Status W/U Status Risk Notes Problem [id number] Colon cancer screening (Z12.11) Active confirmed Problem 607191830 Long-term curren t use of high risk medication other than anticoagulant (Z79.899) Active confirmed Plan Of Treatment Future Test Test Name Order Date COLONOSCOPY 07/25/2016 Insurance Providers Payer Name Payer Address Payer Phone Subscriber Number Group Number Insured Name Patient Relationship to Insured Coverage Start Date Coverage End Date [employer] [address] [place] [phone] [id number] JAZZ GAMBINO Self - patient is the insured Medical (General) History Medical History History ICD Code colonoscopy 05-08-2006 elevated cholesterol gout hypertension Surgical History Surgery Date(Month/Year) shoulder infection requiring surgery on the right
--- OUTSIDE RECORDS SUMMARY | 2025-03-10 16:27 | XMS_ITS | Clinical Summary ---
Author Organization [facility] Address [address] [place] [address] Phone Care Team Providers Care Well Digger Name Role Phone Carmita Pedersen MD Primary Care Provider [phone] Allergies No known active allergies Medications allopurinol [...] mouth 1 (one) time each day Active [place]-3 Fatty Acids 1000 MG capsule delayed-release Take [...] patient's age to complete this topic Insurance [facility] Shared Services ([id number]) ABRAN ABRAMS [id number] Care Teams Well Digger Relationship Specialty Start Date End Date Carmita Pedersen MD [facility] SAGAR ISIDRO [id number] PCP - General Internal Medicine 12/06/21
== END 2025-03-10 13:34 | disposition home or self-care (01) ==
PROVIDERS: PCP Internal Medicine; Visit Provider Physician Assistant
DX: M25.561 Pain in right knee (principal); M25.461 Effusion, right knee

== ENCOUNTER 2025-03-10 12:59 | Outpatient (REF) | payer MEDICARE, SELFPAY ==
--- NOTE | ~2025-03-10 | XR_ITS ---
EXAMINATION: XR KNEE, RIGHT CLINICAL INFORMATION: M25.561 - Pain in right knee COMPARISON: August 20, 2023 TECHNIQUE: Four views of the right knee. FINDINGS: Again seen is severe narrowing of the medial joint compartment with medial subluxation of distal femur. There is chondrocalcinosis involving medial tibial plateau. There are tricompartmental marginal osteophytes. There is a large osteophyte at the superior pole of patella. There is a joint effusion. XR/XR knee RT 4V IMPRESSION: Severe osteoarthritis with a secondary joint effusion Electronically signed by: Randell Brown MD 03/10/2025 02:12 PM EDT
== END 2025-03-10 13:00 | disposition home or self-care (01) ==
LOC: HO.HMGCX 12:59
PROVIDERS: PCP Internal Medicine; Visit Provider Physician Assistant
DX: M25.461 Effusion, right knee (principal); M25.561 Pain in right knee; L98.8 Other specified disorders of the skin and subcutaneous tissue
CPT/HCPCS: 73564; 99212

== ENCOUNTER → 2025-03-10 13:31 | Outpatient (BNV) | payer MEDICARE, SELFPAY | PROVIDERS: PCP Internal Medicine; Visit Provider Radiology Diagnostic Radiology | DX: M17.11 Unilateral primary osteoarthritis, right knee (principal); M25.461 Effusion, right knee | CPT/HCPCS: 73564 ==

== ENCOUNTER 2025-04-19 10:18 | Outpatient (AMB) | payer MEDICARE, SELFPAY ==
--- NOTE | 2025-04-19 10:24 | MHC.OFFVIS ---
Vital Signs 04/19/25 10:25 Height 5 ft 10 in Weight 254 lb BMI 36.4 BP 126/82 Blood Pressure Location Lt brachial Position Sitting Respiration 16 Pulse 82 Pulse Source Pulse Oximeter Pulse Oximetry (%) 98 Oxygen Delivery Method Room Air Intake Visit Reasons: Bilat knee Osteoarthritis Ballroom Dancer Required: No Allergies No Known Allergies Allergy (Verified 04/19/25 10:26) Medication List - Last Reconciled 04/19/25 by Anuja Peterson LPN allopurinol 100 mg PO DAILY amlodipine 2.5 mg PO DAILY ascorbate calcium (vitamin C) 500 mg PO DAILY atorvastatin 20 mg PO DAILY B-complex with vitamin C 1 cap PO DAILY cholecalciferol (vitamin D3) 50 mcg PO DAILY hydrochlorothiazide 25 mg PO DAILY lisinopril 30 mg PO DAILY omega-3 fatty acids (Fish Oil Concentrate) 1,000 mg PO DAILY turmeric mg PO vitamin A 2,400 mcg PO DAILY HPI HPI Bilat knee Osteoarthritis: Details: History of Present Illness The patient is a 69-year-old male presenting with bilateral knee osteoarthritis and associated pain in the right knee and left foot. The pain began in 2018 and has progressively worsened, with current intensity rated at 7 to 8 out of 10, primarily affecting the right knee and left foot. The patient attributes the foot pain to playing racquetball with improperly fitting shoes, which exacerbated the discomfort. The patient has received corticosteroid injections in the past, which provided some relief, but the pain has persisted and worsened over time. He is concerned about the potential for further deterioration and is exploring alternative treatments such as peripheral nerve stimulation and platelet-rich plasma (PRP) therapy. The patient reports difficulty walking long distances, stating that walking more than a couple of hundred yards results in significant pain. He has not undergone any imaging for the foot to assess the underlying cause of pain. The patient is not currently on any blood thinners or platelet agents, although he occasionally takes aspirin to prevent stroke. He is hesitant about knee replacement surgery due to concerns about recovery time and is seeking less invasive options. Pain Description - Onset: Pain began in 2019 and has progressively worsened. - Quality: Pain is severe, rated at 7 to 8 out of 10. - Location: Right knee and left foot. - Exacerbating factors: Walking more than a couple of hundred yards. - Relieving factors: Corticosteroid injections provided some relief. Physical Exam - Appears afebrile. - Alert and oriented. - Mood and affect appropriate. - Follows and participates in conversation appropriately. - TTP medial arch. Pain Management - Affect: Pain impacts the patient's ability to walk long distances and engage in activities like racGarnet Biotherapeuticstball. - Analgesia: Corticosteroid injections have been used previously with some benefit. - Activities of Daily Living: Pain limits walking to short distances and affects recreational activities. PFS Medical History CKD stage 3a, GFR 45-59 ml/min Right knee pain Hypertensive nephrosclerosis Vitamin D deficiency High serum creatinine Osteoarthritis COVID-19 virus infection Obesity Vitamin D deficiency Septic arthritis Gout Essential hypertension Dyslipidemia Surgical History History of colonoscopy History of septic arthritis Family History Father HTN (hypertension) Stroke Mother COPD (chronic obstructive pulmonary disease) Mental health disorder Maternal Uncle Lung cancer Non-insulin dependent diabetes mellitus Substance use disorder Maternal Aunt Substance use disorder Paternal Aunt Substance use disorder Paternal Uncle Substance use disorder Social History Housing: House Alcohol intake: current Patient Tobacco Use Status: Never used Tobacco e-Cigarette/Vaping Use: Never Used service: No Current occupational status: retired Cognitive needs: No Hearing needs: No Vision needs: No Physical Exam Vital Signs: Last Vital Signs Pulse 82 04/19/25 10:25 Resp 16 04/19/25 10:25 BP 126/82 04/19/25 10:25 Pulse Ox 98 04/19/25 10:25 Oxygen Delivery Method Room Air 04/19/25 10:25 BMI result Body Mass Index 36.4 Assessment & Plan Assessment & Plan (1) Left foot pain: Code(s): M79.672 - Pain in left foot Category: Medical (2) Osteoarthritis of right knee: Code(s): M17.11 - Unilateral primary osteoarthritis, right knee Category: Medical Plan Plan Patient was informed and verbally consented to the use of an ambient scribe for clinic note documentation during this visit. 1. Bilateral Knee Osteoarthritis - Consideration of peripheral nerve stimulation and platelet-rich plasma (PRP) therapy as alternative treatments to knee replacement surgery. - Discussion about the potential benefits and limitations of PNS/PRP therapy, noting that earlier intervention might have been more beneficial. - Patient is more interested in definitive treatments like a TKR. 2. Pain In The Left Foot - No imaging has been conducted for the left foot; consideration for MRI to assess underlying issues. - Discussion of PRP therapy for the foot, which may be more beneficial than for the knee. - Patient advised to consult with a four corner stayer machine operator for exercises and further PT. Discussion Notes During the consultation, we discussed the patient's bilateral knee osteoarthritis and associated pain in the right knee and left foot. We explored treatment options including peripheral nerve stimulation and platelet-rich plasma (PRP) therapy, emphasizing that earlier intervention with PRP might have been more beneficial. We also discussed the potential benefits of PRP therapy for the foot, which may be more effective than for the knee, and the importance of consulting with a four corner stayer machine operator for further evaluation and exercises. Patient Instructions - Consider peripheral nerve stimulation and PRP therapy as alternatives to knee replacement surgery. - Consult with a four corner stayer machine operator for exercises and further evaluation of foot pain. - Monitor pain levels and report any significant changes or worsening of symptoms. - Follow up with ortho re. TKR. Orders: Orders MR foot LT wo con 04/19/25 M79.672 - Pain in left foot Coding Level of Care Code New Pt Level 4 (43083) Diagnoses Left foot pain M79.672 Osteoarthritis of right knee M17.11
[2025-04-19 10:25] VITALS: BP 126/82; PULSE 82; RESP 16; O2SAT 98; BMI 36.4
--- OUTSIDE RECORDS SUMMARY | 2025-04-19 12:27 | XMS_ITS | Patient Health Record ---
Author Organization [facility] Address [address] [place] [address] Care Team Providers Care Presidential Helicopter Crew Chief Name Role Phone Nuvia MORRIS, Stephanie Primary Care Provider Wallace Morris Jr Unavailable [phone] Reason For Referral No Information Medications Medication SIG (Take, Route, Frequency, Duration) Notes Start Date End Date Status Atorvastatin Calcium Active Multi Vitamin/Minerals Active Fish Oil Active Colyte with Flavor Packs 240 GM As direc chris Orally Over the specified time.; Duration: 1 day(s) 07/25/2016 Active Fenofibrate Active hydroCHLOROthiazide Active Allopurinol Active Lisinopril Active Problems Problem Type SNOMED Code ICD Code Onset Dates Problem Status W/U Status Risk Notes Problem Colon cancer screening (369051104) Colon cancer screening (Z12.11) Active confirmed Problem Long-term current use of drug therapy (619997766) Long-term current use of high risk medication other than anticoagulant (Z79.899) Active confirmed Plan Of Treatment Future Test Test Name Order Date COLONOSCOPY 07/25/2016 Insurance Providers Payer Name Payer Address Payer Phone Subscriber Number Group Number Insured Name Patient Relationship to Insured Coverage Start Date Coverage End Date [employer] [address] [place] [phone] [id number] JAZZ GAMBINO Self - patient is the insured Medical (General) History Medical History History ICD Code colonoscopy 05-08-2006 elevated cholesterol gout hypertension Surgical History Surgery Date(Month/Year) shoulder infection requiring surgery on the right
--- OUTSIDE RECORDS SUMMARY | 2025-04-19 12:27 | XMS_ITS | Patient Health Record ---
Author Organization [facility] Address [address] [place] [address] Care Team Providers Care Grill Attendant Name Role Phone Nuvia MORRIS, Stephanie Velasquez Primary Care Provider Un available Sesar Miller Unavailable [phone] Allergies No Known Allergies Reason For Referral [...] Status W/U Status Risk Notes Problem Onychomycosis (706810843) Onychomycosis (B35.1) Active confirmed Problem Essential hypertension (70188421) Essential hypertension (I10) Active confirmed Vital Signs Blood pressure diastolic 70 mm Hg 06/09/2024 Height 5ft 11 inch in 06/09/2024 Blood pressure systolic 130 mm Hg 06/09/2024 Weight 250 lbs 06/09/2024 BMI 34.86 kg/m2 06/09/2024 Procedures Procedure Date Ordered Date Performed Result Body Sit e 78923-EKGAVMA NAIL, 6 OR MORE 06/09/2024 N/A Encounters Encounter Location Date Provider Diagnosis [facility] [address] [address] 06/09/2024 Sesar Miller Pain in left foot M79.672 ; Hypertrophy of bone, 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 ; Flat foot [pes planus] (acquired), left foot M21.42 ; Posterior tibial tendinitis of left lower extremity M76.822 ; Pain in right toe(s) M79.674 ; Onychomycosis B35.1 and Pain in left toe(s) M79.675 [facility] [address] [address] 06/09/2024 Sesar Miller Assessments Encounter Date Diagnosis [...] X ray : Foot, left 3V 06/09/2024 [id number] NAIL, 6 OR MORE 06/09/2024 Insurance Providers Payer Name Payer Address Payer Phone Subscriber Number Group Number Insured Name Patient Relationship to Insured Coverage Start Date Coverage End Date [facility] [address] [address] [place] [address] [id number] U Roberto Carlos Richardson Self - patient is the insured Medical (General) History Medical History History ICD Code Arthritis Back,Hip,and Knee pain CAD (Cholesterol) Glaucoma Gout High Blood Pressure Measles Chicken pox Surgical History Surgery Date(Month/Year) shoulder surgery - Drained 2000
== END 2025-04-19 11:05 | disposition home or self-care (01) ==
LOC: HO.PMC 10:18
PROVIDERS: PCP Internal Medicine; Visit Provider Internal Medicine
DX: M79.672 Pain in left foot (principal); M17.11 Unilateral primary osteoarthritis, right knee
CPT/HCPCS: 99204

== ENCOUNTER → 2025-04-19 10:18 | Outpatient (BNVA) | payer MEDICARE, SELFPAY | PROVIDERS: PCP Internal Medicine; Visit Provider Internal Medicine | DX: M79.672 Pain in left foot (principal); M17.0 Bilateral primary osteoarthritis of knee | CPT/HCPCS: 99202 ==

== ENCOUNTER 2025-05-06 09:15 | Outpatient (AMB) | payer MEDICARE, SELFPAY ==
--- NOTE | 2025-05-06 09:20 | A.OFFVIS_ITS ---
Vital Signs 05/06/25 09:24 Height 5 ft 10 in Weight 254 lb BMI 36.4 Intake Visit Reasons: Right knee pain Intake Note: Roberto Carlos is a 69 year old male who presents with complaints of progressively worsening bilateral knee pains, right greater than left. He describes his right knee pain as sharp and severe in nature, 04/02. His right knee pain has gotten worse over the last few years in spite of continued non operative treatments. He has had cortisone injections as well as Durolane injections which gave him temporary relief. At this point his right knee pain is interfering with his activities of daily living and his ability to sleep well through the night. He has difficulty walking even short distances because of his pain. He has tried Tylenol, anti-inflammatory medicines and physical therapy exercises which gave him minimal relief. Allergies No Known Allergies Allergy (Verified 04/19/25 10:26) Medication List - Last Reconciled 05/06/25 by Shabbir Leblanc MD allopurinol 100 mg PO DAILY amlodipine 2.5 mg PO DAILY ascorbate calcium (vitamin C) 500 mg PO DAILY atorvastatin 20 mg PO DAILY B-complex with vitamin C 1 cap PO DAILY cholecalciferol (vitamin D3) 50 mcg PO DAILY hydrochlorothiazide 25 mg PO DAILY lisinopril 30 mg PO DAILY omega-3 fatty acids (Fish Oil Concentrate) 1,000 mg PO DAILY turmeric mg PO vitamin A 2,400 mcg PO DAILY PFSH Medical History CKD stage 3a, GFR 45-59 ml/min Right knee pain Hypertensive nephrosclerosis Vitamin D deficiency High serum creatinine Osteoarthritis COVID-19 virus infection Obesity Vitamin D deficiency Septic arthritis Gout Essential hypertension Dyslipidemia Surgical History History of colonoscopy History of septic arthritis Family History Father HTN (hypertension) Stroke Mother COPD (chronic obstructive pulmonary disease) Mental health disorder Maternal Uncle Lung cancer Non-insulin dependent diabetes mellitus Substance use disorder Maternal Aunt Substance use disorder Paternal Aunt Substance use disorder Paternal Uncle Substance use disorder Social History Housing: House Alcohol intake: current Patient Tobacco Use Status: Never used Tobacco e-Cigarette/Vaping Use: Never Used service: No Current occupational status: retired Cognitive needs: No Hearing needs: No Vision needs: No Physical Exam Vital Signs: BMI result Body Mass Index 36.4 Extrem Other: Right knee examination shows a minimal effusion, palpable crepitus with range of motion, pain with range of motion, range motion from -3 degrees to 115 degrees, no instability Office Procedures AMB Joint Injection/Aspiration Joint Injection/Aspiration Primary Site: Right Knee Prep: site was prepped using aseptic technique Injected: Durolane, with 4 mL of and 1% plain Lidocaine Procedure: The patient tolerated the procedure well Coding 63721 - Large joint Procedure code (CPT) selection complete Results Reviewed Results Reviewed: X-rays of the patient's right knee taken previously show end-stage degenerative joint disease with grade 4 [id number]-[id number] arthritis, subchondral sclerosis, osteophyte formation, no acute bony abnormalities Assessment & Plan Assessment & Plan (1) Arthritis of right knee: Code(s): M17.11 - Unilateral primary osteoarthritis, right knee Category: Medical (2) Right knee pain: Code(s): M25.561 - Pain in right knee Category: Medical Qualifiers: Chronicity: chronic Qualified Code(s): M25.561 - Pain in right knee; G89.29 - Other chronic pain Plan Mr. Armstrong presents with progressively worsening right knee pain due to end- stage degenerative joint disease. The risks and benefits of a right knee Durolane viscosupplementation injection were discussed at length with the patient. The patient wished to proceed. Tolerated the injection well. If he does not get lasting relief from the injection he is considering undergoing right total knee replacement surgery early next year. He will contact my office to pick a surgery date if he chooses to do so. I will see him back prior to his surgery to answer any final questions that he might have. Feel free to call me at any time should questions regarding his orthopedic management arise. I spent 21 minutes in reviewing the patient's records and imaging studies, seeing the patient and documenting in the medical record. Orders: Orders AMB Joint Injection/Aspiration Today M17.11 - Unilateral primary osteoarthritis, right knee Coding Level of Care Code Est Pt Level 3 (60005) Complex EM visit Add On G2211 Diagnoses Arthritis of right knee M17.11 Chronic pain of right knee M25.561; G89.29 Chronicity: chronic CPT Codes Coding - 27829 Large joint: 79792 - Large joint ([id number])
[2025-05-06 09:24] VITALS: BMI 36.4
--- OUTSIDE RECORDS SUMMARY | 2025-05-06 10:31 | XMS_ITS | Patient Health Record ---
Author Organization [facility] Address [address] [place] [address] Care Team Providers Care Java Groovy Developer Name Role Phone Nuvia MORRIS, Stephanie Velasquez Primary Care Provider Un available Sesar Miller Unavailable [phone] Allergies No Known Allergies Reason For Referral [...] Status W/U Status Risk Notes Problem Onychomycosis (517394440) Onychomycosis (B35.1) Active confirmed Problem Essential hypertension (58345729) Essential hypertension (I10) Active confirmed Vital Signs Blood pressure diastolic 70 mm Hg 06/09/2024 Height 5ft 11 inch in 06/09/2024 Blood pressure systolic 130 mm Hg 06/09/2024 Weight 250 lbs 06/09/2024 BMI 34.86 kg/m2 06/09/2024 Procedures Procedure Date Ordered Date Performed Result Body Sit e [id number] NAIL, 6 OR MORE 06/09/2024 N/A Encounters Encounter Location Date Provider Diagnosis [facility] [address] [address] 06/09/2024 Sesar Miller Pain in left foot M79.672 ; Hypertrophy of bone, 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 ; Flat foot [pes planus] (acquired), left foot M21.42 ; Posterior tibial tendinitis of left lower extremity M76.822 ; Pain in right toe(s) M79.674 ; Onychomycosis B35.1 and Pain in left toe(s) M79.675 [facility] [address] [address] 06/09/2024 Sesar Miller Assessments Encounter Date Diagnosis [...] X ray : Foot, left 3V 06/09/2024 [id number] NAIL, 6 OR MORE 06/09/2024 Insurance Providers Payer Name Payer Address Payer Phone Subscriber Number Group Number Insured Name Patient Relationship to Insured Coverage Start Date Coverage End Date [facility] [address] [address] [place] [address] [id number] U Roberto Carlos Richardson Self - patient is the insured Medical (General) History Medical History History ICD Code Arthritis Back,Hip,and Knee pain CAD (Cholesterol) Glaucoma Gout High Blood Pressure Measles Chicken pox Surgical History Surgery Date(Month/Year) shoulder surgery - Drained 2000
--- OUTSIDE RECORDS SUMMARY | 2025-05-06 10:31 | XMS_ITS | Patient Health Record ---
Author Organization [facility] Address [address] [place] [address] Care Team Providers Care Lead Section Supervisor Name Role Phone Nuvia MORRIS, Stephanie [...] Status Risk Notes Problem Colon cancer screening (983988710) Colon cancer screening (Z12.11) Active confirmed Problem Long-term current use of drug therapy (334817252) Long-term current use of high risk medication other than anticoagulant (Z79.899) Active confirmed Plan Of Treatment Future Test Test Name Order Date COLONOSCOPY 07/25/2016 Insurance Providers Payer Name Payer Address Payer Phone Subscriber Number Group Number Insured Name Patient Relationship to Insured Coverage Start Date Coverage End Date [employer] [address] [place] [phone] [id number] JAZZ GAMBINO Self - patient is the insured Medical (General) History Medical History History ICD Code colonoscopy 05-08-2006 elevated cholesterol gout hypertension Surgical History Surgery Date(Month/Year) shoulder infection requiring surgery on the right
== END 2025-05-06 09:51 | disposition home or self-care (01) ==
LOC: HO.HOS 09:15
PROVIDERS: PCP Internal Medicine; Visit Provider Orthopaedic Surgery
DX: M17.11 Unilateral primary osteoarthritis, right knee (principal); M25.561 Pain in right knee; G89.29 Other chronic pain
CPT/HCPCS: 20610; 99213

== ENCOUNTER → 2025-05-06 09:15 | Outpatient (BNVA) | payer MEDICARE, SELFPAY | PROVIDERS: PCP Internal Medicine; Visit Provider Orthopaedic Surgery | DX: M17.11 Unilateral primary osteoarthritis, right knee (principal); M25.561 Pain in right knee; G89.29 Other chronic pain | CPT/HCPCS: 20610; 99212; J2003; J7318 ==

== ENCOUNTER → 2025-06-23 16:02 | Outpatient (BNV) | payer MEDICARE, SELFPAY | PROVIDERS: PCP Internal Medicine; Visit Provider Radiology Diagnostic Ultrasound | DX: S93.422A Sprain of deltoid ligament of left ankle, initial encounter (principal); M19.072 Primary osteoarthritis, left ankle and foot | CPT/HCPCS: 73721 ==

== ENCOUNTER 2025-06-23 16:03 | Outpatient (REF) | payer MEDICARE, SELFPAY ==
--- OUTSIDE RECORDS SUMMARY | 2025-06-23 16:08 | XMS_ITS | Patient Health Record ---
Author [facility] Address [address] [place] [address] Care Team Providers Care Newspaper Journalist Name Role Phone Nuvia MORRIS, Stephanie Velasquez Primary Care Provider Un available Sesar Miller Unavailable [phone] Allergies No Known Allergies Reason For Referral [...] Status W/U Status Risk Notes Problem Onychomycosis (581704794) Onychomycosis (B35.1) Active confirmed Problem Essential hypertension (71676577) Essential hypertension (I10) Active confirmed Plan Of Treatment Pending Test Test Name Order Date X ray : Foot, left 3V 06/09/2024 [id number] NAIL, 6 OR MORE 06/09/2024 Insurance Providers Payer Name Payer Address Payer Phone Subscriber Number Group Number Insured Name Patient Relationship to Insured Coverage Start Date Coverage End Date [facility] [address] [place] [address] [id number] U Roberto Carlos Richardson Self - patient is the insured Medical (General) History Medical History History ICD Code Arthritis Back,Hip,and Knee pain CAD (Cholesterol) Glaucoma Gout High Blood Pressure Measles Chicken pox Surgical History Surgery Date(Month/Year) shoulder surgery - Drained 2000
--- OUTSIDE RECORDS SUMMARY | 2025-06-23 16:08 | XMS_ITS | Patient Health Record ---
Author Organization [facility] Address [address] [place] [address] Care Team Providers Care Supervisor Paper Testing Name Role Phone Nuvia MORRIS, Stephanie Primary Care Provider Wallace Morris Jr Unavailable Reason For Referral No Information Medications Medication SIG (Take, Route, Frequency, Duration) Notes Start Date End Date Status Atorvastatin Calcium Active Multi Vitamin/Minerals Active Fish Oil Active Colyte with Flavor Packs 240 GM Solution Reconstituted As directed Orally Over the specified time.; Duration: 1 day(s) 07/25/2016 Active Fenofibrate Active hydroCHLOROthiazide Active Allopurinol Active Lisinopril Active Social History Social History Additional Details Category Social Info Options Details Miscellaneous: Marital status: single Occupation: retired Problems Problem Type SNOMED Code ICD Code Onset Dates Problem Status W/U Status Risk Notes Problem Colon cancer screening (143786580) Colon cancer screening (Z12.11) Active confirmed Problem Long-term current use of drug therapy (956419277) Long-term current use of high risk medication other than anticoagulant (Z79.899) Active confirmed Plan Of Treatment Future Test Test Name Order Date COLONOSCOPY 07/25/2016 Insurance Providers Payer Name Payer Address Payer Phone Subscriber Number Group Number Insured Name Patient Relationship to Insured Coverage Start Date Coverage End Date [employer] [address] [place] [phone] [id number] JAZZ GAMBINO Self - patient is the insured Medical (General) History Medical History History ICD Code colonoscopy 05-08-2006 elevated cholesterol gout hypertension Surgical History Surgery Date(Month/Year) shoulder infection requiring surgery on the right
== END 2025-06-23 16:04 | disposition home or self-care (01) ==
LOC: HO.MRI 16:03
PROVIDERS: PCP Internal Medicine; Visit Provider Internal Medicine
DX: M25.572 Pain in left ankle and joints of left foot (principal)
CPT/HCPCS: 73721